=== PATIENT | female | born 1950 | race Caucasian/White ===

== ENCOUNTER 2017-05-25 22:26 | Emergency (ER) | payer MEDICARE ==
[2017-05-25 22:48] VITALS: BP 158/73; PULSE 76; RESP 20; TEMP 98.2
[2017-05-25] MEDS ORDERED: ORPHENADRINE 30 MG/ML 2 ML VIAL IM STA (22:57)
[2017-05-25] MEDS ORDERED: KETOROLAC 60 MG/2 ML VIAL IM STA (22:57)
--- NOTE | 2017-05-25 23:02 | ED ---
General Adult HPI - General Chief complaint: Back Pain/Injury Stated complaint: Back Pain Time Seen by Provider: 05/25/17 22:51 Source: patient, RN notes reviewed Mode of arrival: ambulatory Limitations: no limitations - History of Present Illness Initial comments: 67-year-old female presents to the emergency department with a chief complaint of back pain. Patient has had this back pain on and off for the summer. She's been on steroids she is currently on her second course but she just continues to have this back pain if she moves a certain way she'll just develop excruciating pain. Patient states if she sits one way she will have much pain at all. Patient states she's hoping she can get some x-rays. Patient's states that she is pretty active at home and move things but this seems to radiate it worse. Patient states she saw her doctor for persistent on x-ray so she thought that she should be seen. Patient denies any loss of bowel or bladder function or any saddle anesthesia. Patient denies any recent fever, chills, shortness of breath, chest pain, abdominal pain, nausea vomiting, numbness or tingling, dysuria or hematuria, constipation or diarrhea, headaches or visual changes, or any other current symptoms. - Related Data Home Medications Medication Instructions Recorded Confirmed ALPRAZolam [Xanax] 0.25 mg PO DAILY PRN 05/25/17 05/25/17 [place] Unknown Dose 1 tab PO DAILY 05/25/17 05/25/17 Cholecalciferol [Vitamin D3] 1,000 unit PO DAILY 05/25/17 05/25/17 FLUoxetine HCL [PROzac] 20 mg PO BID 05/25/17 05/25/17 Folic Acid 1 mg PO DAILY 05/25/17 05/25/17 Gabapentin [Neurontin] 600 mg PO TID 05/25/17 05/25/17 Lisinopril [Zestril] 10 mg PO BID 05/25/17 05/25/17 [place] Unknown Dose 1 tab PO Q6H PRN 05/25/17 05/25/17 Norvasc Unknown Dose 1 tab PO DAILY 05/25/17 05/25/17 hydrALAZINE HCL [Hydralazine HCl] 25 mg PO BID 05/25/17 05/25/17 predniSONE 40 mg PO DAILY 05/25/17 05/25/17 Previous Rx's Medication Instructions Recorded Lidocaine 5% Patch [Lidoderm 5% 1 patch TOPICAL DAILY #5 patch 05/26/17 Patch] Allergies Allergy/AdvReac Type Severity Reaction Status Date / Time Penicillins Allergy Unknown Verified 05/25/17 23:03 Childhood Review of Systems ROS Statement: Those systems with pertinent positive or pertinent negative responses have been documented in the HPI. ROS Other: All systems not noted in ROS Statement are negative. Past Medical History Past Medical History: Hypertension Additional Past Medical History / Comment(s): L5 compression fracture. chron's. History of Any Multi-Drug Resistant Organisms: None Reported Past Surgical History: No Surgical Hx Reported Past Psychological History: Anxiety, Depression Smoking Status: Current every day smoker Past Alcohol Use History: None Reported Past Drug Use History: Marijuana General Exam Limitations: no limitations General appearance: alert, in no apparent distress Neck exam: Present: normal inspection. Absent: tenderness, meningismus, lymphadenopathy Respiratory exam: Present: normal lung sounds bilaterally. Absent: respiratory distress, wheezes, rales, rhonchi, stridor Cardiovascular Exam: Present: regular rate, normal rhythm, normal heart sounds. Absent: systolic murmur, diastolic murmur, rubs, gallop, clicks Back exam: Present: normal inspection, full ROM. Absent: tenderness Neurological exam: Present: alert, oriented X3, CN II-XII intact Psychiatric exam: Present: normal affect, normal mood Course Vital Signs 05/25/17 22:43 Temperature 98.2 F Pulse Rate 76 Respiratory 20 Rate Blood Pressure 158/73 O2 Sat by Pulse 97 Oximetry Medical Decision Making - Medical Decision Making 67-year-old female presents emergency Department chief complaint of back pain on movement. At this time we discussed the patient's x-ray results. We did discuss follow-up with as well as a back specialist. Discussed return parameters all her questions. She stated she understood and she is a current plan. She will be discharged. - Radiology Data Radiology results: report reviewed, image reviewed Disposition Clinical Impression: Strain of lumbar region Disposition: HOME SELF-CARE Condition: Stable Instructions: Acute Low Back Pain (ED) Additional Instructions: Please use medication as discussed. Please follow up with family doctor if symptoms have not improved over the next two days. Please return to the emergency room if your symptoms increase or worsen or for any other concerns. Prescriptions: Lidocaine 5% Patch [Lidoderm 5% Patch] 1 patch TOPICAL DAILY #5 patch Referrals: Fela Morrow MD [STAFF PHYSICIAN] - 1-2 days Time of Disposition: 00:07
--- NOTE | 2017-05-26 | XR ---
EXAM: XR Lumbar Spine, 2 or 3 Views CLINICAL HISTORY: Reason: Pain TECHNIQUE: Frontal and lateral views of the lumbar spine. COMPARISON: No relevant prior studies available. FINDINGS: Vertebrae: Unremarkable. No acute fracture. Normal alignment. Disc spaces: There is mild loss of height of L1 and L2 vertebral bodies. There is mild rightward curvature of the lumbar spine due to degenerative disc height loss at L3-4. There is also disc height loss at L5-S1. Soft tissues: Unremarkable. IMPRESSION: 1. Mild vertebral body height loss of L1 and L2, likely chronic. Correlate with history. 2. Spondylotic changes at L3-4 and L5-S1. Mild rightward curvature of the lumbar spine.
== END 2017-05-26 00:39 | disposition home or self-care (01) ==
LOC: EC 22:26
DX: S39.012A Strain of muscle, fascia and tendon of lower back, initial encounter (principal); I10 Essential (primary) hypertension; F32.9 Major depressive disorder, single episode, unspecified; F17.200 Nicotine dependence, unspecified, uncomplicated; Z88.0 Allergy status to penicillin; Z79.899 Other long term (current) drug therapy; X50.9XXA Other and unspecified overexertion or strenuous movements or postures, initial encounter
CPT/HCPCS: 99283; 96372 ×2; 72100; J2360; J1885

== ENCOUNTER → 2017-06-21 | Outpatient (CLI) | payer MEDICARE ==
--- NOTE | 2017-06-21 09:35 | BD ---
EXAMINATION TYPE: MG DEXA axial skeleton. DATE OF EXAM: 06/21/2017 COMPARISON: NONE CLINICAL HISTORY: Z13.820 SCREENING OSTEOPOROSIS, postmenopausal female Height: 67 Weight: 130 FRAX RISK QUESTIONS: Alcohol (3 or more units per day): NO Family History (Parent hip fracture): NO Glucocorticoids (More than 3mos): NO, 2 MONTHS NOT 3 (Ex: prednisone, prednisolone, methylprednisolone, dexamethasone, and hydrocortisone). History of Fracture in Adulthood: NO Secondary Osteoporosis: NO 1. Type 1 Diabetes: NO 2. Hyperthyroidism: NO 3. Menopause before 45: NO 4. Malnutrition: NO 5. Chronic liver disease: NO Rheumatoid Arthritis: NO Current Tobacco Use: OCCASIONAL RISK FACTORS HISTORY OF: Family History of Osteoporosis: NO Active: IN WHEELCHAIR, UNABLE Diet low in dairy products/other sources of calcium: LACTOSE INTOLERANT...YES Postmenopausal woman: LATE 40'S Lost more than 2 inches in height since high school: YES Hyperparathyroidism: NO Adrenal Insufficiency: NO MEDICATIONS: Prednisone or other steroids: PREDNISONE How Long: LAST FEW MONTHS Additional Medications: VIT D, BP MEDS, PROZAC,NEUROTIN, Additional History: CRONES DISEASE, HYPERTENSION, NERVE ROOT COMPRESSION L5 SI EXAM MEASUREMENTS: Bone mineral densitometry was performed using the [employer] System. Bone mineral density as measured about the Lumbar spine is: ----- L1-L4(G/cm2): 0.562 T Score Values are as follows: ----- L1: -5.7 ----- L2: -5.9 ----- L3: -4.8 ----- L4: -4.7 ----- L1-L4: -5.1 Bone mineral density THIS IS HER FIRST BONE DENSITY TEST.....BASELINE STUDY Bone mineral density about the R hip (g/cm2): 0.541 Bone mineral density about the L hip (g/cm2): 0.555 T Score values are as follows: -----R Neck: -3.5 -----L Neck: -3.4 -----R Total: -3.7 -----L Total: -3.6 Bone mineral density BASELINE STUDY FRAX%'S: THERE IS A 24.8% CHANCE OF MAJOR OSTEOPOROTIC FX AND A 14.4% FOR HIP FX.....PROBABILITY I N 10 YRS TIME IMPRESSION: Osteoporosis (T Score less than -2.5) as noted by T Score values at the There is increased fracture risk and therapy is usually indicated based on age. Re-Screen 1-2 years FOR BOTH OF HER HIPS AND HER LUMBAR SPINE. NOTE: T-SCORE=SD OF THE YOUNG ADULT MEAN.
== END | disposition home or self-care (01) ==
LOC: RADBDWWP 07:28
PROVIDERS: ATTEND Family Medicine
DX: Z13.820 Encounter for screening for osteoporosis (principal); M81.0 Age-related osteoporosis without current pathological fracture
CPT/HCPCS: 77080

== ENCOUNTER → 2017-06-26 | Outpatient (CLI) | payer MEDICARE ==
--- NOTE | 2017-06-26 10:25 | CT ---
EXAMINATION TYPE: CT lumbar spine wo con DATE OF EXAM: 06/26/2017 COMPARISON: NONE HISTORY: lower rt side back pain CT DLP: 424.30 mGycm CONTRAST: No contrast TECHNIQUE: CT of the lumbar spine is performed on a spiral scan at 3 mm thick sections. Reconstructed images are performed in the coronal and sagittal planes. FINDINGS: T11-T12: Vertebral bodies containing hemangiomas. Disc spaces preserved. No spinal canal stenosis or neural foraminal stenosis is present. T12-L1: No focal disc herniation or significant disc bulge is evident. No spinal canal stenosis or neural foraminal stenosis is present. L1-L2: Very minimal disc bulge is present with anterior thecal sac contact. No spinal canal stenosis is evident. Neural foramen are patent. L2-L3: Minimal disc bulge is present with anterior thecal sac flattening. There is a superior endplat e compression deformity with approximately 20% loss of superior mid vertebral body height. No spinal canal stenosis evident. Neural foramen are patent. L3-L4: Minimal disc bulge is present with anterior thecal sac flattening. Mild facet hypertrophy and ligamentum flavum laxity is present. No spinal canal stenosis is present. There is mild left foramina l narrowing due to disc bulge. L4-L5: Mild disc bulge has mild anterior thecal sac flattening. No AP spinal canal stenosis present. Mild ligamentum flavum laxity is present. Facet hypertrophy is present. L5-S1: No focal disc herniation or significant disc bulge is evident. No spinal canal stenosis or n eural foraminal stenosis is present Vertebral alignment appears normal. IMPRESSION: 1. Superior endplate compression deformity of L3 of indeterminate but suspected old. 2. Vertebral body hemangiomas T11-T12. 3. Diffuse mild disc bulging with mild anterior thecal sac compression throughout the lumbar spine. T his may be greatest at the L4-5 level.
== END | disposition home or self-care (01) ==
LOC: RADCTMAIN 07:25
PROVIDERS: ATTEND Family Medicine
DX: M51.26 Other intervertebral disc displacement, lumbar region (principal); M43.8X6 Other specified deforming dorsopathies, lumbar region; D18.09 Hemangioma of other sites
CPT/HCPCS: 72131

== ENCOUNTER 2017-07-04 16:26 | Emergency (ER) | payer MEDICARE ==
[2017-07-04 16:37] VITALS: RESP 18
[2017-07-04] MEDS ORDERED: SODIUM CHLORIDE 0.9% 1,000 ML IV STA (17:24)
[2017-07-04] MEDS ORDERED: SODIUM CHLORIDE 0.9% 500 ML IV STA (17:24)
[2017-07-04] MEDS ORDERED: HYDROmorphone 1 MG/ML 1 ML SYRINGE IVP STA (17:25)
[2017-07-04] MEDS ORDERED: RX INFO: IV CONTRAST WAS GIVEN 1 EACH MISC MISCELLANE PRN (17:25)
[2017-07-04 17:53] LABS: Basophils # (A) 0.1 k/uL (0-0.2); Basophils % (A) 1 %; CH 28.6; CHCM 32.9; Eosinophils # (A) 0.2 k/uL (0-0.7); Eosinophils % (A) 2 %; HCT 45.3 % (34.0-46.0); HGB 14.6 gm/dL (11.4-16.0); Luc # (Auto) 0.09; Luc % (Auto) 1; Lymphocytes # (A) 1.2 k/uL (1.0-4.8); Lymphocytes % (A) 12 %; MCH 28.2 pg (25.0-35.0); MCHC 32.3 g/dL (31.0-37.0); MCV 87.4 fL (80.0-100.0); Mean Platelet Volume 7.9; Monocytes # (A) 0.7 k/uL (0-1.0); Monocytes % (A) 7 %; Neutrophils # (A) 7.1 k/uL (1.3-7.7); Neutrophils % (A) 76 %; RBC 5.18 m/uL (3.80-5.40); RDW 14.3 % (11.5-15.5); WBC 9.4 k/uL (3.8-10.6)
[2017-07-04 17:59] LABS: Partial Thromboplastin Time 28.3 sec (22.0-30.0); Prothrombin Time 9.8 sec (9.0-12.0)
[2017-07-04 18:01] LABS: ALT 28 U/L (9-52); AST 26 U/L (14-36); Alkaline Phosphatase 88 U/L (38-126); Amylase <30 U/L (30-110); Anion Gap 10 mmol/L; Blood Urea Nitrogen 13 mg/dL (7-17); Calcium 9.5 mg/dL (8.4-10.2); Carbon Dioxide 26 mmol/L (22-30); Chloride 104 mmol/L (98-107); Glucose 99 mg/dL (74-99); Magnesium 1.7 mg/dL (1.6-2.3); Non-African American GFR(MDRD) >60 (>60 ml/min/1.73 sqM); Potassium 4.3 mmol/L (3.5-5.1); Sodium 140 mmol/L (137-145); Total Bilirubin 0.3 mg/dL (0.2-1.3); Total Protein 6.8 g/dL (6.3-8.2)
[2017-07-04 18:30] LABS: Creatine Kinase MB 1.1 ng/mL (0.0-2.4)
--- NOTE | 2017-07-04 19:04 | CT ---
EXAMINATION TYPE: CT ChestAbdPelvis w con DATE OF EXAM: 07/04/2017 COMPARISON: NONE HISTORY: Fall 06/29/17. Left chest and abdomen pain. CT DLP: 508.90 mGycm Automated exposure control for dose reduction was used. CONTRAST: CT scan of the chest, abdomen and pelvis is performed without Oral Contrast and with IV Contrast, pat ient injected with 100 mL of Omnipaque 300. FINDINGS: There is mild pulmonary emphysema. There is no evidence of a pulmonary mass. There is mild interstiti al density at the posterior lung bases consistent with scarring and subsegmental atelectasis. There i s no pericardial effusion. There is no pleural effusion. There is no mediastinal adenopathy. There are calcified right bronchial lymph nodes. Liver and spleen appear normal. Bile ducts are not dilated. Gallbladder appears normal. There is no p ancreatic mass. There is no adrenal mass. Kidneys show satisfactory contrast opacification. There is no hydronephrosi s. There is a 1.5 cm cortical cyst on the anterior lower pole left kidney. There is no retroperitonea l adenopathy. There is mild wall thickening involving the distal ileum. There is a loop of small bowel proximal to the terminal ileum that is slightly dilated and measures 3.7 cm. There is fluid level. Appendix is no t seen. There is no sign of appendicitis. There is tended 20% depression of the superior endplates of L3 and L2 with osteotenia. I see no focal bone destruction. Bladder distends smoothly. I see no pelvic mass. IMPRESSION: Emphysema. Fibrotic changes at the lung bases. Wall thickening involving the terminal ileum could relate to Crohn's disease. There is distal small b owel mildly dilated loop consistent with ileus. A partial mechanical small bowel obstruction cannot b e entirely excluded. Osteoporotic mild compression fractures of L2 and L3.
--- NOTE | 2017-07-04 19:22 | ED ---
Fall HPI - General Chief Complaint: Fall Stated Complaint: Fall Time Seen by Provider: 07/04/17 17:00 Source: patient Mode of arrival: ambulatory - History of Present Illness Initial Comments: This is a 59-year-old female who states about 5 days ago she also balance and fell into a dresser. She had the left side of her ribs and complains of pain to that area ever since. She has no cough fevers chills sweats phlegm production no dysuria no overt abdominal pain. No loss of function to her lower extremities. This persistent pain she is afraid that she may have broken a rib. MD Complaint: fall - Related Data Home Medications Medication Instructions Recorded Confirmed ALPRAZolam [Xanax] 0.5 mg PO DAILY PRN 05/25/17 07/04/17 FLUoxetine HCL [PROzac] 20 mg PO BID 05/25/17 07/04/17 Gabapentin [Neurontin] 600 mg PO Q8H 05/25/17 07/04/17 Lisinopril [Zestril] 10 mg PO BID 05/25/17 07/04/17 HYDROcodone/APAP 7.5-325MG [[place] 1 tab PO Q8H PRN 07/04/17 07/04/17 7.5-325] amLODIPine [Norvasc] 5 mg PO BID 07/04/17 07/04/17 cloNIDine HCL [Catapres] 0.1 mg PO BID 07/04/17 07/04/17 hydrALAZINE HCL [Apresoline] 100 mg PO TID 07/04/17 07/04/17 Previous Rx's Medication Instructions Recorded Ibuprofen 800 mg PO Q6HR PRN #20 tablet 07/04/17 Allergies Allergy/AdvReac Type Severity Reaction Status Date / Time Penicillins Allergy Unknown Verified 07/04/17 17:41 Childhood Review of Systems ROS Statement: Those systems with pertinent positive or pertinent negative responses have been documented in the HPI. ROS Other: All systems not noted in ROS Statement are negative. Past Medical History Past Medical History: Hypertension Additional Past Medical History / Comment(s): L5 compression fracture. crohns. History of Any Multi-Drug Resistant Organisms: None Reported Past Surgical History: No Surgical Hx Reported Past Psychological History: Anxiety, Depression Smoking Status: Current every day smoker Past Alcohol Use History: None Reported Past Drug Use History: Marijuana General Exam - General Exam Comments Initial Comments: This is a well-developed well-nourished awake alert oriented 3 female she does demonstrate a Manda Coma Scale of 15 Limitations: no limitations General appearance: alert, in no apparent distress Head exam: Present: atraumatic, normocephalic, normal inspection Eye exam: Present: normal appearance, PERRL, EOMI. Absent: scleral icterus, conjunctival injection, periorbital swelling ENT exam: Present: normal exam, mucous membranes moist Neck exam: Present: normal inspection. Absent: tenderness, meningismus, lymphadenopathy Respiratory exam: Present: chest wall tenderness, other (Tennis palpation of the left lateral lower chest wall no step-off or crepitation no rashes seen no bruising seen. No step-off or crepitation as stated). Absent: respiratory distress, wheezes, rales, rhonchi, stridor Cardiovascular Exam: Present: regular rate, normal rhythm, normal heart sounds. Absent: systolic murmur, diastolic murmur, rubs, gallop, clicks GI/Abdominal exam: Present: soft, tenderness (Mild left flank and left upper quadrant tenderness palpation no guarding rebound masses or bruits), normal bowel sounds. Absent: distended, guarding, rebound, rigid Extremities exam: Present: normal inspection, full ROM, normal capillary refill. Absent: tenderness, pedal edema, joint swelling, calf tenderness Back exam: Present: normal inspection Neurological exam: Present: alert, oriented X3, CN II-XII intact Psychiatric exam: Present: normal affect, normal mood Skin exam: Present: warm, dry, intact, normal color. Absent: rash Course Vital Signs 07/04/17 16:31 Temperature 98.5 F Pulse Rate 94 Respiratory 18 Rate Blood Pressure 180/88 O2 Sat by Pulse 95 Oximetry Medical Decision Making - Medical Decision Making I did discuss findings with the patient she will be discharged the presentation is consistent with contusion of the ribs. Chart he has narcotic pain medication at home she will be also given a prescription for Motrin. She is follow-up with her doctor and return when necessary - Lab Data Result diagrams: 07/04/17 17:38 07/04/17 17:38 Lab Results 07/04/17 07/04/17 07/04/17 Range/Units 17:38 17:38 17:38 WBC (3.8-10.6) k/uL RBC (3.80-5.40) m/uL Hgb (11.4-16.0) gm/dL Hct (34.0-46.0) % MCV (80.0-100.0) fL MCH (25.0-35.0) pg MCHC (31.0-37.0) g/dL RDW (11.5-15.5) % Plt Count (150-450) k/uL Neutrophils % % Lymphocytes % % Monocytes % % Eosinophils % % Basophils % % Neutrophils # (1.3-7.7) k/uL Lymphocytes # (1.0-4.8) k/uL Monocytes # (0-1.0) k/uL Eosinophils # (0-0.7) k/uL Basophils # (0-0.2) k/uL PT 9.8 (9.0-12.0) sec INR 1.0 (<1.2) APTT 28.3 (22.0-30.0) sec Sodium 140 (137-145) mmol/L Potassium 4.3 (3.5-5.1) mmol/L Chloride 104 (98-107) mmol/L Carbon Dioxide 26 (22-30) mmol/L Anion Gap 10 mmol/L BUN 13 (7-17) mg/dL Creatinine 0.92 (0.52-1.04) mg/dL Est GFR (MDRD) Af Amer >60 (>60 ml/min/1.73 sqM) Est GFR (MDRD) Non-Af >60 (>60 ml/min/1.73 sqM) Glucose 99 (74-99) mg/dL Calcium 9.5 (8.4-10.2) mg/dL Magnesium 1.7 (1.6-2.3) mg/dL Total Bilirubin 0.3 (0.2-1.3) mg/dL AST 26 (14-36) U/L ALT 28 (9-52) U/L Alkaline Phosphatase 88 (38-126) U/L Total Creatine Kinase 93 (30-135) U/L CK-MB (CK-2) 1.1 (0.0-2.4) ng/mL CK-MB (CK-2) Rel Index 1.2 Total Protein 6.8 (6.3-8.2) g/dL Albumin 3.9 (3.5-5.0) g/dL Amylase <30 L (30-110) U/L Lipase 127 (23-300) U/L 07/04/17 Range/Units 17:38 WBC 9.4 (3.8-10.6) k/uL RBC 5.18 (3.80-5.40) m/uL Hgb 14.6 (11.4-16.0) gm/dL Hct 45.3 (34.0-46.0) % MCV 87.4 (80.0-100.0) fL MCH 28.2 (25.0-35.0) pg MCHC 32.3 (31.0-37.0) g/dL RDW 14.3 (11.5-15.5) % Plt Count 297 (150-450) k/uL Neutrophils % 76 % Lymphocytes % 12 % Monocytes % 7 % Eosinophils % 2 % Basophils % 1 % Neutrophils # 7.1 (1.3-7.7) k/uL Lymphocytes # 1.2 (1.0-4.8) k/uL Monocytes # 0.7 (0-1.0) k/uL Eosinophils # 0.2 (0-0.7) k/uL Basophils # 0.1 (0-0.2) k/uL PT (9.0-12.0) sec INR (<1.2) APTT (22.0-30.0) sec Sodium (137-145) mmol/L Potassium (3.5-5.1) mmol/L Chloride (98-107) mmol/L Carbon Dioxide (22-30) mmol/L Anion Gap mmol/L BUN (7-17) mg/dL Creatinine (0.52-1.04) mg/dL Est GFR (MDRD) Af Amer (>60 ml/min/1.73 sqM) Est GFR (MDRD) Non-Af (>60 ml/min/1.73 sqM) Glucose (74-99) mg/dL Calcium (8.4-10.2) mg/dL Magnesium (1.6-2.3) mg/dL Total Bilirubin (0.2-1.3) mg/dL AST (14-36) U/L ALT (9-52) U/L Alkaline Phosphatase (38-126) U/L Total Creatine Kinase (30-135) U/L CK-MB (CK-2) (0.0-2.4) ng/mL CK-MB (CK-2) Rel Index Total Protein (6.3-8.2) g/dL Albumin (3.5-5.0) g/dL Amylase (30-110) U/L Lipase (23-300) U/L - Radiology Data Radiology results: report reviewed (I did review the imaging and reports no evidence of acute findings.), image reviewed Disposition Clinical Impression: Contusion of rib on left side, Fall Disposition: HOME SELF-CARE Condition: Good Instructions: Fall Prevention for Older Adults (ED), Rib Contusion (ED) Prescriptions: Ibuprofen 800 mg PO Q6HR PRN #20 tablet PRN Reason: Pain Referrals: Vanna Davalos MD [Primary Care Provider] - 1-2 days
[2017-07-04 19:35] VITALS: BP 202/95; PULSE 76; TEMP 98.2
== END 2017-07-04 19:49 | disposition home or self-care (01) ==
LOC: EC 16:26
DX: S20.212A Contusion of left front wall of thorax, initial encounter (principal); I10 Essential (primary) hypertension; F41.9 Anxiety disorder, unspecified; F32.9 Major depressive disorder, single episode, unspecified; F17.200 Nicotine dependence, unspecified, uncomplicated; R40.2412 Glasgow coma scale score 13-15, at arrival to emergency department; Z79.899 Other long term (current) drug therapy; Z88.0 Allergy status to penicillin; W19.XXXA Unspecified fall, initial encounter
CPT/HCPCS: 36415; 80053; 82150; 82550; 82553; 83690; 83735; 85025; 85610; 85730; 71260; 74177; 99284; 96374; 96361; J1170; Q9967

== ENCOUNTER → 2017-11-23 | Outpatient (CLI) | payer MEDICARE ==
[2017-11-23 18:15] LABS: T4, Free (Free Thyroxine) 1.26 ng/dL (0.78-2.19)
[2017-11-24 00:52] LABS: Thyroid Peroxidase Antibodies 31.7 U/mL (0.0-60.0)
== END | disposition home or self-care (01) ==
LOC: LABWHC1 17:17
PROVIDERS: ATTEND Family Medicine
DX: E03.9 Hypothyroidism, unspecified (principal); K85.90 Acute pancreatitis without necrosis or infection, unspecified; I25.10 Atherosclerotic heart disease of native coronary artery without angina pectoris
CPT/HCPCS: 36415; 82150; 83690; 84439; 84443; 84480; 86376; 86800

== ENCOUNTER → 2017-12-14 | Outpatient (CLI) | payer MEDICARE ==
--- NOTE | 2017-12-15 09:04 | US ---
EXAMINATION TYPE: US carotid duplex BILAT DATE OF EXAM: 12/14/2017 COMPARISON: NONE CLINICAL HISTORY: I65.29 Carotid occlusive disease. EXAM MEASUREMENTS: RIGHT: Peak Systolic Velocity (PSV) cm/sec ----- Right CCA: 68.0 ----- Right ICA: 81.2 ----- Right ECA: 71.4 ICA/CCA ratio: 1.2 RIGHT: End Diastole cm/sec ----- Right CCA: 13.1 ----- Right ICA: 10.9 ----- Right ECA: 6.0 LEFT: Peak Systolic Velocity (PSV) cm/sec ----- Left CCA: 70.2 ----- Left ICA: 68.0 ----- Left ECA: 83.4 ICA/CCA ratio: 1.0 LEFT: End Diastole cm/sec ----- Left CCA: 14.2 ----- Left ICA: 20.9 ----- Left ECA: 7.6 VERTEBRALS (direction of flow): Right Vertebral: Antegrade Left Vertebral: Antegrade Rhythm: Normal Grayscale images show mild eccentric hyperechoic plaque right carotid bulb extending into proximal in ternal carotid artery. There is minimal plaque at left carotid bulb. Velocity measurements remain wit hin normal limits bilaterally. IMPRESSION: No hemodynamically significant stenosis is seen in either internal carotid artery.
--- NOTE | 2017-12-17 13:13 | ECHOF ---
Referral Reason:I65.29 Carotid occlusive disease MEASUREMENTS -------- HEIGHT: 175.3 cm WEIGHT: 59.9 kg BP: IVSd: 1.2 cm (0.6 - 1.1) LVIDd: 3.9 cm (3.9 - 5.3) LVPWd: 1.2 cm (0.6 - 1.1) IVSs: 1.8 cm LVIDs: 2.4 cm LVPWs: 1.4 cm LAESV Index (A-L): 26.36 ml/m Ao Diam: 2.6 cm (2.0 - 3.7) AV Cusp: 1.5 cm (1.5 - 2.6) LA Diam: 2.4 cm (2.7 - 3.8) MV EXCURSION: 16.594 mm (> 18.000) MV EF SLOPE: 141 mm/s (70 - 150) EPSS: 0.5 cm MV E Elpidio: 0.82 m/s MV DecT: 210 ms MV A Elpidio: 0.95 m/s MV E/A Ratio: 0.86 AR PHT: 411 ms RAP: 5.00 mmHg RVSP: 33.10 mmHg FINDINGS -------- Sinus rhythm. This was a technically good study. The left ventricular size is normal. Left ventricular wall thickness is normal. Overall left vent ricular systolic function is normal with, an EF between 55 - 60 %. The right ventricle is normal in size and function. The left atrium is normal in size. The right atrium is normal in size. The aortic valve is trileaflet and appears structurally normal. There is mild aortic regurgitation. The mitral valve leaflets are mildly thickened. Moderate mitral regurgitation is present. Mild tricuspid regurgitation present. There is no evidence of pulmonary hypertension. The right v entricular systolic pressure, as measured by Doppler, is 33.10mmHg. There is no pulmonic regurgitation present. The aortic root size is normal. Normal inferior vena cava with normal inspiratory collapse consistent with estimated right atrial pre ssure of 5 mmHg. There is no pericardial effusion. CONCLUSIONS -------- 1. Sinus rhythm. 2. This was a technically good study. 3. The left ventricular size is normal. 4. Left ventricular wall thickness is normal. 5. Overall left ventricular systolic function is normal with, an EF between 55 - 60 %. 6. The left atrium is normal in size. 7. The aortic valve is trileaflet and appears structurally normal. 8. There is mild aortic regurgitation. 9. The mitral valve leaflets are mildly thickened. 10. Moderate mitral regurgitation is present. 11. Mild tricuspid regurgitation present. 12. There is no evidence of pulmonary hypertension. 13. There is no pulmonic regurgitation present. 14. The aortic root size is normal. 15. Normal inferior vena cava with normal inspiratory collapse consistent with estimated right atrial pressure of 5 mmHg. 16. There is no pericardial effusion. PICK UP TRUCK DRIVER: Zora [place] RDCS
== END | disposition home or self-care (01) ==
LOC: RADECHMAIN 15:11
PROVIDERS: ATTEND Family Medicine
DX: I65.29 Occlusion and stenosis of unspecified carotid artery (principal); I08.8 Other rheumatic multiple valve diseases
CPT/HCPCS: 93306; 93880

== ENCOUNTER → 2018-02-21 | Outpatient (CLI) | payer MEDICARE ==
--- NOTE | 2018-02-22 09:27 | XR ---
EXAMINATION TYPE: XR chest 2V DATE OF EXAM: 02/21/2018 COMPARISON: Chest CT 07/04/2017 HISTORY: F 17.210, nicotine dependence TECHNIQUE: Frontal and lateral views of the chest are obtained. FINDINGS: There is no focal air space opacity, pleural effusion, or pneumothorax seen. The cardiac silhouette size is within normal limits. Prominent lung volumes are compatible with underlying COPD. There is a spinal curvature. Suspect interval development of lower thoracic or upper lumbar osteoporo tic compression fractures. IMPRESSION: Emphysema. Interval osteoporotic compression fractures in the lower spine.
== END | disposition home or self-care (01) ==
LOC: RADXRMAIN 16:55
PROVIDERS: ATTEND Family Medicine
DX: F17.210 Nicotine dependence, cigarettes, uncomplicated (principal); J43.9 Emphysema, unspecified
CPT/HCPCS: 71046

== ENCOUNTER 2018-05-09 19:19 | Emergency (ER) | payer MEDICARE ==
[2018-05-09 19:54] VITALS: BP 145/66; PULSE 82; RESP 18; TEMP 98.9
--- NOTE | 2018-05-09 20:32 | ED ---
General Adult HPI - General Chief complaint: Recheck/Abnormal Lab/Rx Stated complaint: Arm Fx/Numbness Time Seen by Provider: 05/09/18 19:55 Source: patient, RN notes reviewed Mode of arrival: ambulatory Limitations: physical limitation - History of Present Illness Initial comments: This is a 68-year-old female comes in stating she had fractured her left wrist on Sunday and went to another hospital and she was splinted and sent the Dr. Jaimes. Patient with Dr. Jaimes she refused to cast and he put her in a splint and sent her on her way. Patient states since then the hands become more swollen so she is concerned about the increased swelling and a little bit increased pain. Prior to arrival she took 2 Leslie was. Patient denies any other medications patient denies any other injury at this time. Patient denies any numbness or weakness though she states it feels a little different but she guesses that she just from the swelling. There is no new area of pain is been no injury - Related Data Home Medications Medication Instructions Recorded Confirmed ALPRAZolam [Xanax] 0.5 mg PO DAILY PRN 05/25/17 05/09/18 FLUoxetine HCL [PROzac] 20 mg PO BID 05/25/17 05/09/18 Gabapentin [Neurontin] 600 mg PO Q8H 05/25/17 05/09/18 Lisinopril [Zestril] 10 mg PO BID 05/25/17 05/09/18 HYDROcodone/APAP 7.5-325MG [Leslie 1 tab PO Q8H PRN 07/04/17 05/09/18 7.5-325] amLODIPine [Norvasc] 5 mg PO BID 07/04/17 05/09/18 cloNIDine HCL [Catapres] 0.1 mg PO BID 07/04/17 05/09/18 hydrALAZINE HCL [Apresoline] 100 mg PO TID 07/04/17 05/09/18 Previous Rx's Medication Instructions Recorded Ibuprofen 800 mg PO Q6HR PRN #20 tablet 07/04/17 Allergies Allergy/AdvReac Type Severity Reaction Status Date / Time Penicillins Allergy Unknown Verified 05/09/18 19:53 Childhood Review of Systems ROS Statement: Those systems with pertinent positive or pertinent negative responses have been documented in the HPI. ROS Other: All systems not noted in ROS Statement are negative. Past Medical History Past Medical History: Hypertension Additional Past Medical History / Comment(s): L5 compression fracture. crohns. History of Any Multi-Drug Resistant Organisms: None Reported Past Surgical History: Tubal Ligation Past Psychological History: Anxiety, Depression Smoking Status: Current every day smoker Past Alcohol Use History: None Reported Past Drug Use History: Marijuana General Exam - General Exam Comments Initial Comments: GENERAL Patient is well-developed and well-nourished. Patient is in mild distress. EYES Patient's pupils are equal and round. Extraocular motion is intact SKIN Unremarkable NEURO The patient is alert and oriented 3 PYSCH Patient has normal interpersonal interactions. MUSCULOSKELETAL Left hand is swollen somewhat ecchymotic and tender to palpation around the wrist. Limitations: physical limitation Course Vital Signs 05/09/18 19:51 Temperature 98.9 F Pulse Rate 82 Respiratory 18 Rate Blood Pressure 145/66 O2 Sat by Pulse 94 L Oximetry Medical Decision Making - Medical Decision Making I re-x-rayed the wrist that showed no changes from the previous x-ray so since Dr. Jaimes the scene the patient I let her follow up with Dr. Jaimes. I told the patient to keep the hand elevated and don't put the File[place] wrap onto tightly. Splint was reapplied Disposition Clinical Impression: Wrist fracture, left Disposition: HOME SELF-CARE Condition: Good Instructions: Wrist Fracture in Adults (ED) Is patient prescribed a controlled substance at d/c from ED?: No Referrals: Jas Jaimes DO [Doctor of Osteopathic Medicine] - 1-2 days Time of Disposition: 20:59
[2018-05-09] MEDS ORDERED: KETOROLAC 60 MG/2 ML VIAL IM STA (21:08)
--- NOTE | 2018-05-09 21:10 | XR ---
EXAMINATION TYPE: XR forearm RT DATE OF EXAM: 05/09/2018 COMPARISON: NONE HISTORY: Pain TECHNIQUE: 2 views FINDINGS: There is impacted transverse fracture of the distal radius. There is no dislocation. Elbow joint appears intact. IMPRESSION: Distal radius fracture. Possible ulnar styloid process tip fracture.
== END 2018-05-09 21:29 | disposition home or self-care (01) ==
LOC: EC 19:19
DX: S52.502D Unspecified fracture of the lower end of left radius, subsequent encounter for closed fracture with routine healing (principal); I10 Essential (primary) hypertension; F32.9 Major depressive disorder, single episode, unspecified; F41.9 Anxiety disorder, unspecified; F17.200 Nicotine dependence, unspecified, uncomplicated; Z79.899 Other long term (current) drug therapy; Z88.0 Allergy status to penicillin; W19.XXXD Unspecified fall, subsequent encounter
CPT/HCPCS: 99284; 96372; 73090; J1885

== ENCOUNTER → 2019-01-28 | Outpatient (CLI) | payer MEDICARE ==
[2019-01-28 20:20] LABS: Vitamin D 25 Hydroxy 46.5 ng/mL (30.0-100.0)
[2019-01-28 20:46] LABS: Parathyroid Hormone Intact 60.6 pg/mL (14.0-72.0)
[2019-01-28 20:58] LABS: Albumin 4.3 g/dL (3.80-4.90); Albumin/Globulin Ratio 2.05 (1.60-3.17); Anion Gap 8.5 mmol/L (4.00-12.00); Calcium 9.3 mg/dL (8.7-10.3); Carbon Dioxide 26.5 mmol/L (21.6-31.8); Globulin 2.1 g/dL (1.6-3.3); LDL Cholesterol,Calculated 103.4 mg/dL (0.0-131.0); Magnesium 1.8 mg/dL (1.5-2.4); Potassium 4.1 mmol/L (3.5-5.5); Total Bilirubin 0.7 mg/dL (0.3-1.2); Total Protein 6.4 g/dL (6.2-8.2); VLDL Calculation 22.6 mg/dL (5.00-40.00)
[2019-01-28 21:09] LABS: T4, Free (Free Thyroxine) 1.2 ng/dL (0.80-1.80)
== END | disposition home or self-care (01) ==
LOC: LABWHC1 12:31
PROVIDERS: ATTEND Internal Medicine Endocrinology, Diabetes & Metabolism
DX: F32.9 Major depressive disorder, single episode, unspecified (principal); M19.90 Unspecified osteoarthritis, unspecified site
CPT/HCPCS: 36415; 80053; 80061; 82306; 83735; 83970; 84439; 84443; 85652

== ENCOUNTER 2019-01-30 16:14 | Emergency (ER) | payer MEDICARE ==
[2019-01-30] MEDS ORDERED: SODIUM CHLORIDE 0.9% 1,000 ML IV STA (16:44)
[2019-01-30] MEDS ORDERED: DIAZEPAM 5 MG/ML 2 ML INJ IVP STA (16:44)
[2019-01-30] MEDS ORDERED: GLUCAGON 1 MG/ML VIAL IVP STA (16:44)
--- NOTE | 2019-01-30 16:44 | ED ---
ENT HPI - General Chief complaint: ENT Stated complaint: Trouble Swallowing Time Seen by Provider: 01/30/19 16:35 Source: patient, RN notes reviewed, old records reviewed Mode of arrival: ambulatory Limitations: no limitations - History of Present Illness Initial comments: This is a 69-year-old female the ER for evaluation. Patient resents today for evaluation of esophageal foreign body. Patient is eating shrimp earlier in the day and felt he got stuck unable to tolerate secretions that he would drink. Patient had similar episode years ago but did resolve with medication. No prior history of upper GI no prior evaluation. Patient denies any other complaints no chest pain she is anxious with the foreign body being stuck. MD complaint: difficulty swallowing, foreign body -: hour(s) Location: throat Severity: severe Severity scale (1-10): 10 Quality: aching Consistency: constant Improves with: none Worsens with: swallowing - Related Data Home Medications Medication Instructions Recorded Confirmed ALPRAZolam [Xanax] 0.5 mg PO DAILY PRN 05/25/17 01/30/19 FLUoxetine HCL [PROzac] 20 mg PO BID 05/25/17 01/30/19 Gabapentin [Neurontin] 600 mg PO Q8H 05/25/17 01/30/19 amLODIPine [Norvasc] 5 mg PO BID 07/04/17 01/30/19 cloNIDine HCL [Catapres] 0.1 mg PO BID 07/04/17 01/30/19 hydrALAZINE HCL [Apresoline] 100 mg PO TID 07/04/17 01/30/19 Ergocalciferol [Vitamin D2] 50,000 unit PO MO 01/30/19 01/30/19 Previous Rx's Medication Instructions Recorded Ibuprofen 800 mg PO Q6HR PRN #20 tablet 07/04/17 Allergies Allergy/AdvReac Type Severity Reaction Status Date / Time Penicillins Allergy Unknown Verified 01/30/19 17:03 Childhood Review of Systems ROS Statement: Those systems with pertinent positive or pertinent negative responses have been documented in the HPI. ROS Other: All systems not noted in ROS Statement are negative. Past Medical History Past Medical History: Hypertension Additional Past Medical History / Comment(s): L5 compression fracture. crohns. History of Any Multi-Drug Resistant Organisms: None Reported Past Surgical History: Tubal Ligation Past Psychological History: Anxiety, Depression Smoking Status: Current every day smoker Past Alcohol Use History: None Reported Past Drug Use History: Marijuana General Exam Limitations: no limitations General appearance: alert, in no apparent distress Head exam: Present: atraumatic, normocephalic, normal inspection Eye exam: Present: normal appearance, PERRL, EOMI. Absent: scleral icterus, conjunctival injection, periorbital swelling ENT exam: Present: normal exam, mucous membranes moist Neck exam: Present: normal inspection. Absent: tenderness, meningismus, lymphadenopathy Respiratory exam: Present: normal lung sounds bilaterally. Absent: respiratory distress, wheezes, rales, rhonchi, stridor Cardiovascular Exam: Present: regular rate, normal rhythm, normal heart sounds. Absent: systolic murmur, diastolic murmur, rubs, gallop, clicks GI/Abdominal exam: Present: soft, normal bowel sounds. Absent: distended, tenderness, guarding, rebound, rigid Extremities exam: Present: normal inspection, full ROM, normal capillary refill. Absent: tenderness, pedal edema, joint swelling, calf tenderness Back exam: Present: normal inspection Neurological exam: Present: alert, oriented X3, CN II-XII intact Psychiatric exam: Present: normal affect, normal mood Skin exam: Present: warm, dry, intact, normal color. Absent: rash Course Vital Signs 01/30/19 16:22 Temperature 98.1 F Pulse Rate 87 Respiratory 18 Rate Blood Pressure 156/83 O2 Sat by Pulse 95 Oximetry - Reevaluation(s) Reevaluation #1: 01/30/19 18:50 Medical record reviewed Reevaluation #2: 01/30/19 18:50 Improvement with medication Reevaluation #3: 01/30/19 18:50 Dr. Reynolds for GI and endoscopy evaluating patient here in the ER Medical Decision Making - Medical Decision Making 79 female the ER positive esophageal foreign body. Patient has upper endoscopy with improvement of the foreign body. Patient can be discharged home - Radiology Data Radiology results: report reviewed (Chest x-rays negative for acute disease), image reviewed Disposition Clinical Impression: Esophageal foreign body Disposition: HOME SELF-CARE Condition: Good Instructions (If sedation given, give patient instructions): Esophageal Foreign Body (ED) Is patient prescribed a controlled substance at d/c from ED?: No Referrals: Aracelis Reynolds MD [STAFF PHYSICIAN] - 1-2 days
--- NOTE | 2019-01-30 17:11 | XR ---
EXAMINATION TYPE: XR chest 1V portable DATE OF EXAM: 01/30/2019 COMPARISON: 02/21/2018 HISTORY: Difficulty swallowing. Chest pain TECHNIQUE: Single frontal view of the chest is obtained. FINDINGS: There is no heart failure. Heart size is normal. Costophrenic angles are clear. Thoracic a philly is atheromatous. There are no hilar masses. There is a small linear density in the right upper l obe laterally. There is some pleural thickening at the right lung apex. IMPRESSION: Focal atelectasis right upper lobe is a change compared to old exam. Normal heart. There is increased pleural thickening right upper lobe compared to old exam also.
[2019-01-30] MEDS ORDERED: LIDOCAINE 1% INJ 10MG/ML (20 ML MDV) ONE (19:18)
[2019-01-30] MEDS ORDERED: PROPOFOL 10 MG/ML 20 ML VIAL IV ONE (19:18)
[2019-01-30] MEDS ORDERED: SODIUM CHLORIDE 0.9% 1,000 ML IV ONE (19:29)
--- NOTE | 2019-01-30 19:34 | P.PCN ---
Date of Procedure: 01/30/19 Procedure(s) Performed: BRIEF HISTORY: Patient is a 69-year-old, pleasant, white male, came to emergency room with acute food impaction. She had a similar episode 3 years ago that spontaneously resolved. Never had an upper endoscopy in the past.. PROCEDURE PERFORMED: Esophagogastroduodenoscopy with foreign body removal. PREOPERATIVE DIAGNOSIS: Dysphagia/acute food impaction. IV sedation per anesthesia. PROCEDURE: After informed consent was obtained, the patient was brought into the endoscopy unit. IV sedation was administered by Anesthesia under continuous monitoring. Initially the Olympus GIF-140 video endoscope was inserted into the mouth. Esophagus intubated without any difficulty. It was gradually advanced into the distal esophagus. There was a large piece of meat that was impacted. Using a Milian net the piece of meat was withdrawn out of the mouth along with the scope. The esophagus was reintubated without any difficulty and was gradually advanced into the stomach and duodenum and carefully examined. The bulb and the second part of the duodenum appeared normal. The scope at this time was withdrawn to the stomach, adequately insufflated with air, and upon careful examination, mucosa of the antrum, body, cardia and the fundus appeared normal. The scope was then withdrawn into the esophagus. The GE junction was located at 39 cm from the incisors. There was a distal esophageal stricture identified with luminal diameter of approximately 10 mm. The rest of the food particles were gently pushed into the stomach. There was a small hiatal hernia noted. There was circumferential erythema as well as erosions of the distal esophagus consistent with LA grade B reflux esophagitis. The rest of the esophagus appeared normal and the patient tolerated the procedure well. IMPRESSION: 1. Food bolus impaction in the distal esophagus status post removal as described above. 2. Distal esophageal stricture. RECOMMENDATIONS: The findings of this examination were discussed with the patient as well as her family. She will remain on a soft diet. She'll start on Prilosec 20 mg daily and follow antireflux measures. She will follow up in office in 2 weeks and will discuss elective upper endoscopy with dilation.
[2019-01-30 20:00] VITALS: BP 148/88; PULSE 88; RESP 20; TEMP 98.3
--- NOTE | 2019-01-30 23:43 | CONS ---
CONSULTATION DATE OF SERVICE: 01/30/2019 REASON FOR CONSULTATION: Acute food impaction. HISTORY OF PRESENT ILLNESS: The patient is a 69 -year-old white female who came to the Emergency Room with acute food dysphagia. She was eating for lunch and could not swallow any further. Came to the emergency room and was tried Glucophage with no help. She has been having these episodes on and off for the last few months. She had a similar episode about two years ago and went to [facility], but after giving some medications, the episodes resolved. She never had any endoscopic evaluation in the past. In the emergency room, she was given the tolerate and hence we are consulted for possible upper endoscopy on an emergency basis. The patient denies any throat pain, reports no heartburn. PAST MEDICAL HISTORY: Significant for hypertension, degenerative joint disease, anxiety. PAST SURGICAL HISTORY: Unremarkable. MEDICATIONS: At home include: Xanax, Cozaar, Neurontin, , vitamin D2. ALLERGIES: PENICILLIN. SOCIAL HISTORY: No smoking. No alcohol use. FAMILY HISTORY: Unremarkable. REVIEW OF SYMPTOMS: Cardiopulmonary: No chest pain or shortness of breath. Genitourinary: No dysuria or hematuria. MUSCULOSKELETAL: Unremarkable. SKIN: Unremarkable. ENDOCRINE: Unremarkable. PSYCHIATRIC: Unremarkable. NEUROLOGICAL: Unremarkable. CONSTITUTIONAL: No recent weight loss. EXAMINATION: She appears comfortable in no apparent distress. Vital signs stable. Blood pressure is 156/83, pulse rate 87, temperature 98.1. HEENT examination unremarkable. Conjunctivae pink. Sclerae anicteric. Oral cavity no lesions. NECK: No jugular venous distention or lymph node enlargement. CHEST: The chest was clear to auscultation. HEART: Regular rate and rhythm. ABDOMEN: Soft, nontender, nondistended. Liver and spleen not palpable. Bowel sounds are positive. No organomegaly. EXTREMITIES: No pedal edema. SKIN: No rashes. NEUROLOGIC: Alert and oriented x3. No focal deficits. IMPRESSION: 1. Acute food impaction. The patient was shrimp for lunch and could not swallow any further.. Presently not able to swallow secretions or sips of the liquids. She had a similar episode about 2 years ago but did not need any endoscopy intervention. Symptoms have spontaneously resolved after she went to the emergency room at [facility]. It is likely we are dealing with esophageal stricture. RECOMMENDATIONS: We will proceed with an upper endoscopy in the emergency room at that time. I discussed with the patient the risks, benefits and complications of the procedure and she is agreeable to it. . SHONDAL / IJN: [id number] /
== END 2019-01-30 20:06 | disposition home or self-care (01) ==
LOC: EC 16:14
DX: T18.128A Food in esophagus causing other injury, initial encounter (principal); I10 Essential (primary) hypertension; F41.9 Anxiety disorder, unspecified; F32.9 Major depressive disorder, single episode, unspecified; F17.200 Nicotine dependence, unspecified, uncomplicated; Z79.899 Other long term (current) drug therapy; Z88.0 Allergy status to penicillin
CPT/HCPCS: 71045; 43247; 99284; 96374; 96375; 96361 ×3; J1610; J3360; J2001; J2704

== ENCOUNTER → 2019-02-12 | Outpatient (CLI) | payer MEDICARE ==
--- NOTE | 2019-02-12 17:33 | XR ---
EXAMINATION TYPE: XR Hip Complete RT DATE OF EXAM: 02/12/2019 COMPARISON: NONE HISTORY: 69 year-old female with right hip pain TECHNIQUE: 2 views FINDINGS: Mild marginal spurring at the right hip. Overall maintained hip joint space. Vascular calcifications in pelvis. No acute fracture, subluxation, or dislocation. IMPRESSION: No acute osseous abnormality seen. Mild degenerative spurring.
== END | disposition home or self-care (01) ==
LOC: RADXRMAIN 16:31
PROVIDERS: ATTEND Family Medicine
DX: M76.891 Other specified enthesopathies of right lower limb, excluding foot (principal)
CPT/HCPCS: 73502

== ENCOUNTER 2019-04-02 07:31 | Day surgery (SDC) | payer MEDICARE ==
[2019-04-01 09:49] VITALS: BMI 20.7
[~2019-04-02 07:31] MED LIST: LACTATED RINGERS 1,000 ML IV SCH; LIDOCAINE 1% 20 ML VIAL (10MG/ML) FOR IV START INTRADERMA PRN
[2019-04-02 08:02] VITALS: RESP 16; TEMP 98.2
[2019-04-02] MEDS ORDERED: PROPOFOL 10 MG/ML 20 ML VIAL IV ONE (08:09)
[2019-04-02] MEDS ORDERED: GLYCOPYRROLATE 0.2 MG/ML 2 ML VIAL ONE (08:09)
[2019-04-02] MEDS ORDERED: LIDOCAINE 1% INJ 10MG/ML (20 ML MDV) ONE (08:09)
--- NOTE | 2019-04-02 08:40 | P.PCN ---
Date of Procedure: 04/02/19 Procedure(s) Performed: Brief history: Patient is a pleasant 69-year-old white female, scheduled for an elective upper endoscopy as well as colonoscopy as a part of evaluation of intermittent dysphagia to solids and chronic diarrhea. She had an episode of food impaction requiring an emergency upper endoscopy a month ago. Also has been having chronic diarrhea for the last several months. Procedure performed: Esophagogastroduodenoscopy with biopsy and dilation Colonoscopy with biopsy Preoperative diagnosis: Intermittent dysphagia to solids/recent episode of food impaction Chronic diarrhea Anesthesia: MAC Procedure: After informed consent was obtained from the patient was brought into the endoscopy unit and IV sedation was administered by anesthesia under continuous monitoring. Initially upper endoscopy was done. The Olympus GF 160 video endoscope was inserted inserted into the mouth and esophagus intubated without any difficulty and was gradually advanced into the distal esophagus where there was an esophageal stricture identified. Scope could not be advanced through the stricture despite applying moderate pressure. At this time balloon dilation was performed using 10-12 mm TTS balloon in a sequential fashion for total of 90 seconds. Following this I was able to advance the scope into the stomach and duodenum and carefully examined. The bulb and second part of the duodenum appeared normal. The scope was then withdrawn into the stomach adequately insufflated with air and upon careful examination the antrum and body, and diffuse gastritis and biopsies were done from this area. The cardia and fundus appeared normal. The scope was then withdrawn into the esophagus. Small hiatal hernia noted. The GE junction was located at 37 cm to the incisors. There was some mucosal oozing identified the site of dilation of esophageal stricture located at 37 cm from the incisors. It appeared regular with no erythema erosions or ulcerations. Rest of the esophagus appeared normal. Patient tolerated the procedure well. At this time the patient continued to remain sedation. Initial digital rectal examination was normal. Olympus CF 160 video colonoscope was then inserted into the rectum and gradually advanced to the right colon without any difficulty. There was a stricture encountered. The mucosa just proximal to the stricture appeared very erythematous friable. It was unclear whether we are dealing with a stricture versus anastomosis from previous surgery. However multiple biopsies were done from the strictured area. Mucosa of the rest of the ascending colon, transverse colon, descending colon, sigmoid colon and rectum appeared normal. As mild proctitis noted in the distal rectum which was also biopsied. Retroflexion was performed in the rectum and no lesions were noted. Patient tolerated the procedure well. Impression: 1. Upper endoscopy revealed tight distal esophageal stricture status post balloon dilation using 10-12 mm TTS balloon as described above, small hiatal hernia and diffuse atrophic gastritis 2. Colonoscopy revealed stricture in the right colon possibly at the ileocolic anastomosis with mucosal erythema and friability of the mucosa adjacent to the stricture and multiple biopsies were done from this area. Mild proctitis noted. No evidence of colorectal neoplasia Recommendations: Findings of this examination were discussed with the patient as well as a family. She was advised to remain on clear liquid diet today. She will continue with Prilosec 20 mg daily and follow antireflux measures. She'll follow with the biopsy results. She was advised to follow up in office in 2-3 weeks.
[2019-04-02 09:01] VITALS: BP 172/96; PULSE 70
== END 2019-04-02 09:25 | disposition home or self-care (01) ==
LOC: ORWHC2ENDO 07:31
PROVIDERS: ATTEND Internal Medicine Gastroenterology
DX: K22.2 Esophageal obstruction (principal); K29.40 Chronic atrophic gastritis without bleeding; K51.80 Other ulcerative colitis without complications; K44.9 Diaphragmatic hernia without obstruction or gangrene; Z88.0 Allergy status to penicillin; I10 Essential (primary) hypertension; F90.9 Attention-deficit hyperactivity disorder, unspecified type; Z79.899 Other long term (current) drug therapy; F41.9 Anxiety disorder, unspecified; F32.9 Major depressive disorder, single episode, unspecified
CPT/HCPCS: 88305; 45380; 43239; 43249; J2001; J2704; C1726

== ENCOUNTER → 2019-07-03 | Outpatient (CLI) | payer MEDICARE ==
--- NOTE | 2019-07-06 13:44 | BD ---
EXAMINATION TYPE: Axial Bone Density DATE OF EXAM: 07/03/2019 COMPARISON: NONE CLINICAL HISTORY: Height: 5 FT 7 IN Weight: 137 FRAX RISK QUESTIONS: History of Fracture in Adulthood: YES Secondary Osteoporosis: Current Tobacco Use: YES RISK FACTORS HISTORY OF: History of Wrist Fracture: RT When: 2018 Surgery to Spine/Hip(right/left)/Wrist (right/left): RT WRIST When: 2018 Active: Postmenopausal woman: LATE 40'S Lost more than 2 inches in height since high school: YES MEDICATIONS: Additional Medications: NEURONTIN,TRAMADOL, VIT D PROZAC, BP MEDS Additional History: CHRONES, EXAM MEASUREMENTS: Bone mineral densitometry was performed using the [employer]. Bone mineral density as measured about the Lumbar spine is: ----- L1-L4(G/cm2): 0.646 T Score Values are as follows: ----- L2: -5.7 ----- L3: -4.0 ----- L4: -4.0 ----- L1-L4: -4.5 Bone mineral density has: INCREASED 11.8 % since study of: 2017 Bone mineral density about the R hip (g/cm2): 0.554 Bone mineral density about the L hip (g/cm2): 0.586 T Score values are as follows: -----R Neck: -3.5 -----L Neck: -3.2 -----R Total: -3.5 -----L Total: -3.3 Bone mineral density has: INCREASED 6.2 % since study of: 2017 IMPRESSION: Osteoporosis (T Score less than -2.5). There is increased fracture risk and therapy is usually indicated based on age. Re-Screen 1-2 years. NOTE: T-SCORE=SD OF THE YOUNG ADULT MEAN.
== END | disposition home or self-care (01) ==
LOC: RADBDWWP 16:24
PROVIDERS: ATTEND Family Medicine
DX: M81.0 Age-related osteoporosis without current pathological fracture (principal)
CPT/HCPCS: 77080

== ENCOUNTER → 2019-09-01 | Outpatient (CLI) | payer MEDICARE ==
[~2019-09-01] MED LIST changes: +DENOSUMAB 60 MG/ML 1 ML SYRINGE SQ NR; +DENOSUMAB 60 MG/ML 1 ML SYRINGE SQ ONE; -LACTATED RINGERS 1,000 ML IV SCH; -LIDOCAINE 1% 20 ML VIAL (10MG/ML) FOR IV START INTRADERMA PRN
[2019-09-01 14:12] VITALS: BP 152/89; PULSE 90; RESP 16; TEMP 97.9
== END | disposition home or self-care (01) ==
LOC: PROCWHC3 13:59
PROVIDERS: ATTEND Internal Medicine Endocrinology, Diabetes & Metabolism
DX: M81.0 Age-related osteoporosis without current pathological fracture (principal)

== ENCOUNTER → 2019-12-26 | Outpatient (CLI) | payer MEDICARE | END | disposition home or self-care (01) | LOC: RADMRIMAIN 09:17 | PROVIDERS: ATTEND Family Medicine | DX: Z53.9 Procedure and treatment not carried out, unspecified reason (principal) ==

== ENCOUNTER 2020-05-15 09:26 | Emergency (ER) | payer MEDICARE ==
[2020-05-15] MEDS ORDERED: HYDROmorphone 1 MG/ML 1 ML SYRINGE IM STA (09:56)
--- NOTE | 2020-05-15 10:03 | ED ---
General Adult HPI - General Chief complaint: Back Pain/Injury Stated complaint: Back Pain Time Seen by Provider: 05/15/20 09:31 Source: patient, EMS, RN notes reviewed Mode of arrival: EMS Limitations: no limitations - History of Present Illness Initial comments: Patient is a pleasant 70-year-old female presenting to the emergency Department with complaints of back spasms. Symptoms have or see over the past couple of weeks. Patient has known compression fractures. Patient sees Dr. Mercado and has had injections. Patient did have recent x-rays and MRI. Patient does have MRI report at home however has not followed up with Dr. Mercado since her MRI was done. No leg weakness or loss of sensation. Patient has been having occasional incontinence over the past month. This is not change in the past few weeks. No change in symptoms since her MRI has been done. Patient has had some incontinence previous to the past month however not as frequently. Incontinence is urinary incontinence and not rectal incontinence. NO Retention. - Related Data Home Medications Medication Instructions Recorded Confirmed ALPRAZolam [Xanax] 0.5 mg PO DAILY PRN 05/25/17 09/01/19 FLUoxetine HCL [PROzac] 20 mg PO BID 05/25/17 09/01/19 Gabapentin [Neurontin] 600 mg PO Q8H 05/25/17 09/01/19 amLODIPine [Norvasc] 5 mg PO DAILY 07/04/17 09/01/19 cloNIDine HCL [Catapres] 0.1 mg PO DAILY 07/04/17 09/01/19 hydrALAZINE HCL [Apresoline] 100 mg PO DAILY 07/04/17 09/01/19 Ergocalciferol [Vitamin D2] 50,000 unit PO MO 01/30/19 09/01/19 Celecoxib [CeleBREX] 200 mg PO DAILY 04/01/19 09/01/19 Diphenox-Atrop 2.5-0.025 mg 1 tab PO DAILY PRN 04/01/19 09/01/19 [Lomotil] Ibuprofen [Advil] 400 - 600 mg PO Q8HR PRN 04/01/19 09/01/19 traMADol HCl [Ultram] 50 mg PO DAILY 04/01/19 09/01/19 Previous Rx's Medication Instructions Recorded methylPREDNISolone Dose Pack 24 mg PO DAILY #1 tab 05/15/20 [Medrol Dose Pack] Allergies Allergy/AdvReac Type Severity Reaction Status Date / Time Penicillins Allergy Unknown Verified 09/01/19 14:10 Childhood Review of Systems ROS Statement: Those systems with pertinent positive or pertinent negative responses have been documented in the HPI. ROS Other: All systems not noted in ROS Statement are negative. Constitutional: Denies: fever Eyes: Denies: eye pain ENT: Denies: ear pain Respiratory: Denies: cough Cardiovascular: Denies: chest pain Endocrine: Denies: fatigue Gastrointestinal: Denies: abdominal pain, nausea, vomiting Genitourinary: Reports: as per HPI. Denies: dysuria Musculoskeletal: Reports: as per HPI, back pain Skin: Denies: rash Neurological: Denies: weakness, paresthesias Past Medical History Past Medical History: Hypertension Additional Past Medical History / Comment(s): L5 compression fracture. crohns. ADHD History of Any Multi-Drug Resistant Organisms: None Reported Past Surgical History: Tubal Ligation Additional Past Surgical History / Comment(s): REMOVAL OF SHRIMP FROM ESOPHAGUS. COLONOSCOPY. EGD Past Anesthesia/Blood Transfusion Reactions: No Reported Reaction Past Psychological History: ADD/ADHD, Anxiety, Depression Past Alcohol Use History: None Reported Past Drug Use History: Marijuana - Past Family History Mother Family Medical History: Cancer Additional Family Medical History / Comment(s): HODGKIN'S LYMPHOMA General Exam Limitations: no limitations General appearance: alert, in no apparent distress Head exam: Present: normocephalic Eye exam: Present: normal appearance Neck exam: Present: normal inspection Respiratory exam: Present: normal lung sounds bilaterally Cardiovascular Exam: Present: regular rate, normal rhythm Expanded Peripheral pulses: 2+: Dorsalis Pedis (R), Dorsalis Pedis (L) GI/Abdominal exam: Present: soft. Absent: tenderness Rectal exam: Present: other (Patient refuses) Extremities exam: Present: normal inspection Back exam: Present: normal inspection. Absent: tenderness, vertebral tenderness Neurological exam: Present: alert. Absent: motor sensory deficit Expanded Sensory exam: Lower Extremity Light Touch: Normal Motor strength exam: RLE: 5, LLE: 5 Psychiatric exam: Present: normal affect, normal mood Skin exam: Present: normal color Course Vital Signs 05/15/20 09:29 Temperature 98 F Pulse Rate 77 Respiratory 20 Rate Blood Pressure 150/91 O2 Sat by Pulse 95 Oximetry - Reevaluation(s) Reevaluation #1: 05/15/20 09:58 Patient refusing rectal exam. Patient is on muscle relaxers at home. Case was discussed with Dr. Jaimes including history and physical and incontinence history, who is comfortable with letting patient be discharged and follow-up with Dr. Mercado on Sunday. He is agreeable with steroids. 05/15/20 11:02 Patient reevaluated and significantly improved. Patient is comfortable with plan and discharge. Patient is agreeable to follow-up Dr. Mercado on Sunday. Disposition Clinical Impression: Back pain Disposition: HOME SELF-CARE Condition: Stable Instructions (If sedation given, give patient instructions): Back Pain (ED) Additional Instructions: Please follow-up with Dr. Mercado on Sunday. Please also follow-up with primary care physician in the next day or 2 for recheck. Prescription sent to your pharmacy. Return for weakness, increasing incontinence, fevers, worsening or changing symptoms or other concerns. Prescriptions: methylPREDNISolone Dose Pack [Medrol Dose Pack] 24 mg PO DAILY #1 tab Is patient prescribed a controlled substance at d/c from ED?: No Referrals: Delfino Muller DO [Primary Care Provider] - 1-2 days Jas Mercado DO [Doctor of Osteopathic Medicine] - 1-2 days Time of Disposition: 11:04
[2020-05-15] MEDS ORDERED: methylPREDNISolone SOD SUCCI 125 MG/2 ML VIAL IM ONE (11:01)
[2020-05-15] MEDS ORDERED: ORPHENADRINE 30 MG/ML 2 ML VIAL IM STA (11:01)
[2020-05-15 11:31] VITALS: BP 157/81; PULSE 80; RESP 18; TEMP 97.4
== END 2020-05-15 12:08 | disposition home or self-care (01) ==
LOC: EC 09:26
DX: M54.9 Dorsalgia, unspecified (principal); I10 Essential (primary) hypertension; F41.9 Anxiety disorder, unspecified; F32.9 Major depressive disorder, single episode, unspecified; F90.9 Attention-deficit hyperactivity disorder, unspecified type; Z79.1 Long term (current) use of non-steroidal anti-inflammatories (NSAID); Z79.899 Other long term (current) drug therapy; Z88.0 Allergy status to penicillin; Z87.311 Personal history of (healed) other pathological fracture
CPT/HCPCS: 99283; 96372 ×3; J2360; J2930; J1170

== ENCOUNTER → 2020-06-04 | Outpatient (CLI) | payer MEDICARE | END | disposition home or self-care (01) | LOC: LABWHC1 11:44 | PROVIDERS: ATTEND Family Medicine | DX: Z53.9 Procedure and treatment not carried out, unspecified reason (principal) ==

== ENCOUNTER → 2020-06-07 | Outpatient (CLI) | payer MEDICARE | END | disposition home or self-care (01) | LOC: LABWHC1 11:00 | PROVIDERS: ATTEND Family Medicine | DX: Z53.9 Procedure and treatment not carried out, unspecified reason (principal) ==

== ENCOUNTER → 2020-06-08 | Outpatient (CLI) | payer MEDICARE | END | disposition home or self-care (01) | LOC: LABWHC1 08:56 | PROVIDERS: ATTEND Family Medicine | DX: Z03.818 Encounter for observation for suspected exposure to other biological agents ruled out (principal); R61 Generalized hyperhidrosis | CPT/HCPCS: U0003; C9803 ==

== ENCOUNTER → 2020-10-06 | Outpatient (CLI) | payer MEDICARE ==
--- NOTE | 2020-10-07 00:42 | CT ---
EXAMINATION TYPE: CT thor lumbar spine wo con DATE OF EXAM: 10/06/2020 COMPARISON: 07/04/2017. HISTORY: Low back pain, thoracic pain. Hx spinal fractures. CT DLP: 750.6 mGycm TECHNIQUE: Axial CT images of the thoracolumbar spine was performed without contrast. Coronal and sag ittal reformats were generated and reviewed. Automated exposure control for dose reduction was used. FINDINGS: There is generalized osteopenia. There is no acute fracture or subluxation. There is redemonstration of 1.2 cm anterior spinal canal l esion at T9-T10 level, appears dural based. There are moderate compression deformities of T8, T11 and T12 and mild to moderate L2 and L3. There is multilevel mild disc height narrowing of the thoracolumbar spine. There is moderate facet ar thropathy in the lower lumbar spine. There is mild dextroconvex curvature of the lumbar spine. No significant paraspinal soft tissue abnormality. Limited evaluation of the lungs and abdomen, demonstrate no acute abnormality. Moderate centrilobular emphysema is seen. IMPRESSION: NO ACUTE ABNORMALITY OF THE THORACOLUMBAR SPINE. MULTILEVEL CHRONIC THORACOLUMBAR SPINE FRACTURES WITH MILD TO MODERATE COMPRESSION DEFORMITIES ENU MERATED ABOVE. THE THORACIC SPINE FRACTURES ARE HOWEVER NEW COMPARED TO 2017 CT AND THERE HAS ALSO B EEN INTERVAL MILD PROGRESSION OF HEIGHT LOSS OF THE LUMBAR SPINE FRACTURES. Mild to moderate thoracolumbar spondylosis. Redemonstrated 1.2 cm in the dural-based spinal canal lesion at T9-T10 level. Recommend correlation t o outside MRI from 07/09/2020.
== END | disposition home or self-care (01) ==
LOC: RADCTMAIN 17:29
PROVIDERS: ATTEND Orthopaedic Surgery
DX: M43.8X5 Other specified deforming dorsopathies, thoracolumbar region (principal); M47.815 Spondylosis without myelopathy or radiculopathy, thoracolumbar region; G95.89 Other specified diseases of spinal cord; S22.008A Other fracture of unspecified thoracic vertebra, initial encounter for closed fracture; S32.008A Other fracture of unspecified lumbar vertebra, initial encounter for closed fracture; Z88.0 Allergy status to penicillin
CPT/HCPCS: 72128; 72131

== ENCOUNTER 2021-02-18 15:56 | Emergency (ER) | payer MEDICARE ==
[2021-02-18] MEDS ORDERED: MORPHINE SULFATE 2 MG/ML SYRINGE IM STA (17:02)
--- NOTE | 2021-02-18 17:17 | ED ---
Fall HPI - General Chief Complaint: Fall Stated Complaint: fall Time Seen by Provider: 02/18/21 16:32 Source: patient, EMS Mode of arrival: EMS - History of Present Illness Initial Comments: Patient is a 71-year-old female presenting to the emergency department complaints of right shoulder pain after she fell about an hour prior to arrival. Patient states she tripped on a small ledge on the cement and fell forward landing mostly on her right shoulder. She states she did scan her nose a little bit as well. She did not hit her head hard. She denies loss of consciousness, she is not on blood thinners. She also is complaining of some right wrist pain as well as right knee pain. She states she was able to ambulate without difficulty. She denies any chest pain or shortness of breath, no abdominal pain, no nausea or vomiting. No lightheadedness or dizziness. She denies any previous surgeries or injuries to her right shoulder. She has no further complaints at this time. - Related Data Home Medications Medication Instructions Recorded Confirmed FLUoxetine HCL [PROzac] 20 mg PO BID 05/25/17 02/18/21 amLODIPine [Norvasc] 5 mg PO DAILY 07/04/17 02/18/21 cloNIDine HCL [Catapres] 0.1 mg PO Q12H 07/04/17 02/18/21 hydrALAZINE HCL [Apresoline] 100 mg PO TID 07/04/17 02/18/21 Previous Rx's Medication Instructions Recorded HYDROcodone/APAP 7.5-325MG [Havelock 1 tab PO Q6HR PRN 3 Days #12 tab 02/18/21 7.5-325] Allergies Allergy/AdvReac Type Severity Reaction Status Date / Time Penicillins Allergy Unknown Verified 02/18/21 18:14 Childhood Review of Systems ROS Statement: Those systems with pertinent positive or pertinent negative responses have been documented in the HPI. ROS Other: All systems not noted in ROS Statement are negative. Past Medical History Past Medical History: Hypertension Additional Past Medical History / Comment(s): L5 compression fracture. crohns. ADHD History of Any Multi-Drug Resistant Organisms: None Reported Past Surgical History: Tubal Ligation Additional Past Surgical History / Comment(s): REMOVAL OF SHRIMP FROM ESOPHAGUS. COLONOSCOPY. EGD Past Anesthesia/Blood Transfusion Reactions: No Reported Reaction Past Psychological History: ADD/ADHD, Anxiety, Depression Smoking Status: Current every day smoker Past Alcohol Use History: None Reported Past Drug Use History: Marijuana - Past Family History Mother Family Medical History: Cancer Additional Family Medical History / Comment(s): HODGKIN'S LYMPHOMA General Exam - General Exam Comments Initial Comments: GENERAL: Patient is well-developed and well-nourished. Patient is nontoxic and in mild distress. HEAD: Atraumatic, normocephalic. There are no hematomas, no signs of basal skull fracture. EYES: Pupils equal round and reactive to light, extraocular movements intact, sclera anicteric, conjunctiva are normal. Eyelids were unremarkable. ENT: TMs normal, nares patent, oropharynx clear without exudates. Moist mucous membranes. NECK: Normal range of motion, supple without lymphadenopathy or JVD. She has full range of motion, no midline tenderness. LUNGS: Unlabored respirations. Breath sounds clear to auscultation bilaterally and equal. No wheezes rales or rhonchi. HEART: Regular rate and rhythm without murmurs, rubs or gallops. ABDOMEN: Soft, nontender, normoactive bowel sounds. No guarding, no rebound. No masses appreciated. : Deferred MUSCULOSKELETAL: Patient has guarding and unwilling to actively move the right shoulder, she has pain in the right shoulder, right upper arm. She does have some swelling to this area well. She is neurovascular intact, she is able to squeeze my hand. She does have some mild discomfort of the dorsum of the right wrist, mild swelling to this area as well. Patient does have some mild pain of the right knee however there is no swelling, no deformity, she has full active range of motion of the right knee. No clubbing or cyanosis. NEUROLOGICAL: Patient is alert and oriented x 3. Motor and sensory are also intact. Cranial nerves II through XII grossly intact. Symmetrical smile. Normal speech, normal gait. PSYCH: Normal mood, normal affect. SKIN: Warm, Dry, normal turgor, no rashes. Patient has mild abrasion noted to her nasal bone, to her left upper lip as well as to her right knee, these are all superficial abrasions, no active bleeding. No sutures indicated. Limitations: no limitations Course Vital Signs 02/18/21 02/18/21 02/18/21 16:12 17:16 18:20 Temperature 97.9 F 97.1 F L Pulse Rate 88 77 88 Respiratory 20 18 20 Rate Blood Pressure 145/92 138/68 156/78 O2 Sat by Pulse 97 99 98 Oximetry Medical Decision Making - Medical Decision Making A 71-year-old female here after a fall injuring her right shoulder. She tripped on the sidewalk and fell forward, landing on her right shoulder also has some mild abrasions to her nose and right knee. Right shoulder x-ray reveals an acute impacted humeral neck fracture. No other fracture seen on her wrist or knee x-rays. Patient was given pain medicine here in the ER. Patient was placed in a sling and will follow up with orthopedics. Patient is also given prescription for pain control. She is stable for discharge and she is in agreement this plan of care. Case discussed with Dr. Buchanan. Disposition Clinical Impression: Fall, Fracture of neck of right humerus Disposition: HOME SELF-CARE Condition: Stable Instructions (If sedation given, give patient instructions): Arm Fracture in Adults (ED) Additional Instructions: Please return to the Emergency Department if symptoms worsen or any other concerns. Sling in place until follow-up with orthopedics, may remove for changing clothes, showers. Take Tylenol and ibuprofen for discomfort, may take Havelock's for more severe pain. Follow-up with orthopedics. Prescriptions: HYDROcodone/APAP 7.5-325MG [Havelock 7.5-325] 1 tab PO Q6HR PRN 3 Days #12 tab PRN Reason: Pain Is patient prescribed a controlled substance at d/c from ED?: Yes When asked, does pt state using other controlled substances?: No If prescribed controlled substance>3 days was MAPS reviewed?: Prescribed <3 Days If opioid is for acute pain is fill amount 7 days or less?: Yes If Rx opioid, was Start Talking consent form obtained?: Yes Referrals: Claudio Anderson MD [Primary Care Provider] - 1-2 days Brenden Jaimes DO [Doctor of Osteopathic Medicine] - 1-2 days Time of Disposition: 18:06
--- NOTE | 2021-02-18 17:38 | XR ---
EXAMINATION TYPE: XR shoulder complete RT DATE OF EXAM: 02/18/2021 COMPARISON: NONE HISTORY: Pain after falling TECHNIQUE: 3 views FINDINGS: There is impacted comminuted fractures of the humeral neck. There is no dislocation. Scapul a appears intact. AC joint is intact. IMPRESSION: Acute impacted humeral neck fracture with comminution.
--- NOTE | 2021-02-18 17:39 | XR ---
EXAMINATION TYPE: XR knee complete RT DATE OF EXAM: 02/18/2021 COMPARISON: NONE HISTORY: Pain TECHNIQUE: 3 views FINDINGS: I see no fracture nor dislocation. Joint spaces are normal. There is no evidence of joint e ffusion. There is mild vascular calcification. IMPRESSION: Negative right knee exam. No fracture.
--- NOTE | 2021-02-18 17:40 | XR ---
EXAMINATION TYPE: XR humerus RT DATE OF EXAM: 02/18/2021 COMPARISON: NONE HISTORY: Fall. Pain. TECHNIQUE: 3 views FINDINGS: There is impacted comminuted humeral neck fracture. There is no dislocation at the shoulder joint. The elbow joint appears intact. IMPRESSION: Acute impacted comminuted humeral neck fracture.
--- NOTE | 2021-02-18 17:42 | XR ---
EXAMINATION TYPE: XR wrist complete RT DATE OF EXAM: 02/18/2021 COMPARISON: 05/07/2018 HISTORY: Pain after falling TECHNIQUE: 4 views FINDINGS: There is plate with screws fixing old fracture of the distal radius. I see no acute fractur e nor dislocation. Carpal bones are intact. The metacarpals appear intact. IMPRESSION: Old healed fracture of the distal radius. No acute fracture seen.
[2021-02-18 18:58] VITALS: BP 156/78; PULSE 88; RESP 20; TEMP 97.1
== END 2021-02-18 18:20 | disposition home or self-care (01) ==
LOC: EC 15:56
DX: S42.291A Other displaced fracture of upper end of right humerus, initial encounter for closed fracture (principal); S00.31XA Abrasion of nose, initial encounter; S00.511A Abrasion of lip, initial encounter; S80.211A Abrasion, right knee, initial encounter; M25.531 Pain in right wrist; I10 Essential (primary) hypertension; F17.200 Nicotine dependence, unspecified, uncomplicated; Z98.51 Tubal ligation status; F32.9 Major depressive disorder, single episode, unspecified; F12.90 Cannabis use, unspecified, uncomplicated; W01.0XXA Fall on same level from slipping, tripping and stumbling without subsequent striking against object, initial encounter
CPT/HCPCS: 73030; 73060; 73110; 73562; 99283; 96372; J2270

== ENCOUNTER → 2022-01-31 | Outpatient (CLI) | payer MEDICARE ==
--- NOTE | 2022-01-31 22:33 | BD ---
EXAMINATION TYPE: Axial Bone Density DATE OF EXAM: 01/31/2022 COMPARISON: Prior bone scan July 03, 2019 CLINICAL HISTORY: 72 years year old Female. ICD-10 CODE: Z78.0 asymptomatic menopausal state Height: 66 Weight: 131.8 FRAX RISK QUESTIONS: Alcohol (3 or more units per day): NO Family History (Parent hip fracture): YES MOTHER Glucocorticoids (More than 3mos): NO (Ex: prednisone, prednisolone, methylprednisolone, dexamethasone, and hydrocortisone). History of Fracture in Adulthood: WRIST, SHOULDER Secondary Osteoporosis: 1. Type 1 Diabetes: NO 2. Hyperthyroidism: NO 3. Menopause before 45: NO 4. Malnutrition: NO 5. Chronic liver disease: NO Rheumatoid Arthritis: NO Current Tobacco Use: YES RISK FACTORS HISTORY OF: Hip Fracture (Right/Left): NO Spine Fracture: NO History of Wrist Fracture: YES When: AGE 69 Surgery to Spine/Hip(right/left)/Wrist (right/left): RT WRIST When: AGE 69 Family History of Osteoporosis: NO Active: NO Diet low in dairy products/other sources of calcium: YES Postmenopausal woman: YES Take estrogen and/or progesterone medications: NO Lost more than 2 inches in height since high school: YES Frequent falls: NO Poor Health: YES Hyperparathyroidism: NO Adrenal Insufficiency: NO MEDICATIONS: Prednisone or other steroids: NO Thyroid Medications: NO Osteoporosis Medications INJECTION DAILY PAST 2 YEARS Additional Medications: BP MEDS, PROZAC, CALCIUM, VIT D, NARCO, ADDERALL , CELEBREX, Additional History: EXAM MEASUREMENTS: Bone mineral densitometry was performed using the [employer] System. Bone mineral density as measured about the Lumbar spine is: ----- L1-L4(G/cm2): 0.628 T Score Values are as follows: ----- L1: -4.4 ----- L2: -4.4 ----- L3: -5.2 ----- L4: -4.5 ----- L1-L4: -4.6 Bone mineral density has: DECREASED 4.1 % since study of: 2018 Bone mineral density about the R hip (g/cm2): 0.520 Bone mineral density about the L hip (g/cm2): 0.552 T Score values are as follows: -----R Neck: -3.7 -----L Neck: -3.5 -----R Total: -3.8 -----L Total: -3.8 Bone mineral density has: DECREASED 9.5 % since study of: 2019 FRAX%s: The graph provided illustrates a 43.5% chance for a major osteoporotic fx and a 28.8% chance for the hips probability for fx in 10 years time. IMPRESSION: Osteoporosis (T Score less than -2.5). There is increased fracture risk and therapy is usually indicated based on age. Re-Screen 1-2 years. NOTE: T-SCORE=SD OF THE YOUNG ADULT MEAN.
== END | disposition home or self-care (01) ==
LOC: RADBDWWP 16:34
PROVIDERS: ATTEND Family Medicine
DX: M81.0 Age-related osteoporosis without current pathological fracture (principal); Z78.0 Asymptomatic menopausal state
CPT/HCPCS: 77080

== ENCOUNTER → 2023-04-05 | Outpatient (CLI) | payer MEDICARE ==
--- NOTE | 2023-04-06 08:35 | BD ---
EXAMINATION TYPE: Axial Bone Density DATE OF EXAM: 04/05/2023 CLINICAL HISTORY: 73 year old Female. ICD-10 CODE: M81.0 AGE-RELATED OSTEOPOROSIS W/O CURRENT PATHOL OGY Comparison: Prior study 2021. Height: 66 Weight: 137.4 FRAX RISK QUESTIONS: Alcohol (3 or more units per day): no Family History (Parent hip fracture): no Glucocorticoids (More than 3mos): no (Ex: prednisone, prednisolone, methylprednisolone, dexamethasone, and hydrocortisone). History of Fracture in Adulthood: yes Secondary Osteoporosis: 1. Type 1 Diabetes: no 2. Hyperthyroidism: no 3. Menopause before 45: no 4. Malnutrition: no 5. Chronic liver disease: no Rheumatoid Arthritis: no Current Tobacco Use: yes RISK FACTORS HISTORY OF: History of Wrist Fracture: right When: age 69 Surgery to Spine/Hip(right/left)/Wrist (right/left): right wrist When: age 69 Family History of Osteoporosis: no Diet low in dairy products/other sources of calcium: no Postmenopausal woman: yes Lost more than 2 inches in height since high school: yes MEDICATIONS: Osteoporosis Medications: used to take the shot stopped 6 months ago Additional History: EXAM MEASUREMENTS: Bone mineral densitometry was performed using the [employer] System. Bone mineral density as measured about the Lumbar spine is: ----- L1-L4(G/cm2): 0.666 T Score Values are as follows: ----- L1: -4.1 ----- L2: -4.9 ----- L3: -4.4 ----- L4: -4.0 ----- L1-L4: -4.3 Z Score Values are as follows: ----- L1: -2.3 ----- L2: -3.1 ----- L3: -2.6 ----- L4: -2.2 ----- L1-L4: -2.5 Bone mineral density has: increased 6.1 % since study of: 01.31.2022 Bone mineral density about the R hip (g/cm2): 0.532 Bone mineral density about the L hip (g/cm2): 0.592 T Score values are as follows: -----R Neck: -3.6 -----L Neck: -3.2 -----R Total: -3.8 -----L Total: -3.3 Z Score values are as follows: -----R Neck: -1.7 -----L Neck: -1.3 -----R Total: -2.0 -----L Total: -1.6 Bone mineral density has: increased 6.6 % since study of: 4..2021 FRAX%s: The graph provided illustrates a 42.8% chance for a major osteoporotic fx and a 27.8% chance for the hips probability for fx in 10 years time. IMPRESSION: Osteoporosis (T Score less than -2.5) remains present. There is increased fracture risk and therapy is usually indicated based on age. Re-Screen 1-2 years. NOTE: T-SCORE=SD OF THE YOUNG ADULT MEAN.
== END | disposition home or self-care (01) ==
LOC: RADBDWWP 16:19
PROVIDERS: ATTEND Internal Medicine Endocrinology, Diabetes & Metabolism
DX: M81.0 Age-related osteoporosis without current pathological fracture (principal); M85.89 Other specified disorders of bone density and structure, multiple sites
CPT/HCPCS: 77080

== ENCOUNTER → 2023-08-07 | Outpatient (CLI) | payer MEDICARE ==
--- NOTE | 2023-08-07 16:40 | US ---
EXAMINATION TYPE: US carotid duplex BILAT DATE OF EXAM: 08/07/2023 COMPARISON: 12/14/17 CLINICAL INDICATION: Female, 73 years old with history of I65.23 CAROTID STENOSIS; carotid stenosis TECHNIQUE: Carotid duplex ultrasound examination. Indirect Doppler criteria was utilized. 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 Criteria for Assigning % of Stenosis / Diameter reduction (Estimation based on the indirect measurements of the internal carotid artery velocities (ICA PSV). 1. Normal (no stenosis)=ICA PSV < 125 cm/s: ratio < 2.0: ICA EDV<40 cm/s. 2. Less than 50% stenosis=ICA PSV < 125 cm/s: ratio < 2.0: ICA EDV<40 cm/s. 3. 50 to 69% stenosis=ICA PSV of 125 to 230 cm/s: ration 2.0 ? 4.0: ICA EDV 40-100 cm/s. 4. Greater than 70% stenosis to near occlusion= ICA PSV > 230 cm/s: ratio > 4.0: ICA EDV > 100 cm/s. 5. Near occlusion= ICA PSV velocities may be low or undetectable: variable ratio and ICA EDV. 6. Total occlusion=unable to detect flow.
--- NOTE | 2023-08-08 09:05 | CTL ---
EXAMINATION TYPE: CT Low Dose Lung DATE OF EXAM ORDERED: 08/07/2023 HISTORY: . Lung cancer screening CT DLP: 89.[address] CTDI: 2.3 mGy Automated exposure control for dose reduction was used. SCREENING VISIT: COMPARISON: 07/04/2017 TECHNIQUE: Low dose computed tomography scan was performed through the chest at 1 mm thick sections a nd reconstructed images in multiple planes at 1 mm and [address] DIAGNOSTIC QUALITY: Satisfactory FINDINGS: There is biapical pleural thickening or scarring. There is subcentimeter subpleural micronodules. There is a 5 mm nodule in the left lower lobe axial image 40. There is a 6 mm calcified granuloma rig ht middle lobe axial image 221 No consolidative pneumonia. No pleural effusion. No pneumothorax. Calcified lymph nodes are seen. Noncontrast technique limits assessment pathologic adenopathy grossly not identified. Correlate for chronic granulomatous disease. Coronary artery calcification is seen in the trace pericardial fluid. The heart size is atherosclerot ic change of the aorta which measures a maximum 3.7 cm. There is a moderate-sized hiatal hernia. Hypertrophic and degenerative changes spine with multiple co mpression deformities which appear chronic. Diffuse osteopenia. IMPRESSION: 1. Pulmonary nodules as noted above with mild emphysematous changes. 2. Moderate-sized hiatal hernia. 3. Coronary artery calcification 4. Emphysematous changes. CT LUNG RAD AND CT CHEST RECOMMENDATION: Lung-Rad 2 Benign Appearance or Behavior: Continue annual sc reening with LDCT in 12 months.
== END | disposition home or self-care (01) ==
LOC: RADUSWWP 16:02
PROVIDERS: ATTEND Internal Medicine
DX: Z12.2 Encounter for screening for malignant neoplasm of respiratory organs (principal); I65.23 Occlusion and stenosis of bilateral carotid arteries; F17.210 Nicotine dependence, cigarettes, uncomplicated; K44.9 Diaphragmatic hernia without obstruction or gangrene; J43.9 Emphysema, unspecified; I25.10 Atherosclerotic heart disease of native coronary artery without angina pectoris; R91.8 Other nonspecific abnormal finding of lung field
CPT/HCPCS: 71271; 93880

== ENCOUNTER 2024-03-27 16:31 | Emergency (ER) | payer MEDICARE ==
--- NOTE | 2024-03-27 17:43 | ED ---
General Adult HPI - General Chief complaint: Recheck/Abnormal Lab/Rx Stated complaint: AFIB Time Seen by Provider: 03/27/24 16:38 Source: patient Mode of arrival: ambulatory Limitations: no limitations - History of Present Illness Initial comments: Leslie is a 74-year-old female who presents to the emergency department today from her primary care office for evaluation of tachycardia, irregular heartbeat. Patient states she went to her primary care office this morning for routine visit her primary care doctor noted that she was diaphoretic and tachycardic he did an EKG and noted some irregularity he was concerned that she had new onset A-fib and advised her to come to the hospital for evaluation. Patient denies any cardiac history she has no history of arrhythmias no history of A-fib. Patient does admit that she took caffeine pills this morning, she does not drink coffee or energy drinks and states that she usually takes a caffeine pill in the mornings when she is tired. Patient denies any recent illness she denies any chest pain she has not felt any palpitations or lightheadedness. - Related Data Home Medications Medication Instructions Recorded Confirmed amLODIPine [Norvasc] 5 mg PO DAILY 07/04/17 03/27/24 cloNIDine HCL [Catapres] 0.1 mg PO HS 07/04/17 03/27/24 ALPRAZolam [Xanax] 0.5 mg PO DAILY PRN 03/27/24 03/27/24 Atorvastatin [Lipitor] 40 mg PO DAILY 03/27/24 03/27/24 Calcium Carbonate [Calcium] 600 mg PO DAILY 03/27/24 03/27/24 Cholecalciferol (Vitamin D3) 50 mcg PO DAILY 03/27/24 03/27/24 [Vitamin D3 (50 Mcg = 2000 Iu)] Dextroamphetamine Sulfate [Zenzedi] 20 mg PO BID 03/27/24 03/27/24 HYDROcodone/APAP 5-325MG [[place] 1 tab PO BID PRN 03/27/24 03/27/24 5-325] Pregabalin [Lyrica] 300 mg PO DAILY 03/27/24 03/27/24 busPIRone HCL 5 mg PO BID 03/27/24 03/27/24 Allergies Allergy/AdvReac Type Severity Reaction Status Date / Time Penicillins Allergy Unknown Verified 03/27/24 18:01 Childhood Review of Systems ROS Statement: Those systems with pertinent positive or pertinent negative responses have been documented in the HPI. ROS Other: All systems not noted in ROS Statement are negative. Past Medical History Past Medical History: Hypertension Additional Past Medical History / Comment(s): L5 compression fracture. crohns. ADHD History of Any Multi-Drug Resistant Organisms: None Reported Past Surgical History: Tubal Ligation Additional Past Surgical History / Comment(s): REMOVAL OF SHRIMP FROM ESOPHAGUS. COLONOSCOPY. EGD Past Anesthesia/Blood Transfusion Reactions: No Reported Reaction Past Psychological History: ADD/ADHD, Anxiety, Depression Smoking Status: Current every day smoker Past Alcohol Use History: None Reported Past Drug Use History: Marijuana - Past Family History Mother Family Medical History: Cancer Additional Family Medical History / Comment(s): HODGKIN'S LYMPHOMA General Exam - General Exam Comments Initial Comments: Physical Exam GENERAL: Patient is well-developed and well-nourished. Patient is nontoxic and well- hydrated and is in no distress. HENT: Normocephalic, Atraumatic. EYES: PERRL, EOMI PULMONARY: Unlabored respirations. No audible rales rhonchi or wheezing was noted. CARDIOVASCULAR: Regular rate but irregular rhythm Strong peripheral pulses ABDOMEN: Soft and nontender with normal bowel sounds. SKIN: Skin is clear with no lesions or rashes and otherwise unremarkable. : Deferred NEUROLOGIC: Patient is alert and oriented x3. Moving all extremities spontaneously MUSCULOSKELETAL: Normal extremities with adequate strength and full range of motion. No lower extremity swelling or edema. No calf tenderness. PSYCHIATRIC: Normal psychiatric evaluation. Limitations: no limitations Course Vital Signs 03/27/24 03/27/24 03/27/24 16:34 17:00 18:00 Temperature 97.7 F Pulse Rate 106 H 81 89 Respiratory 18 18 20 Rate Blood Pressure 134/67 136/94 109/59 O2 Sat by Pulse 97 97 Oximetry 03/27/24 20:33 Temperature 98.0 F Pulse Rate 70 Respiratory 18 Rate Blood Pressure 125/78 O2 Sat by Pulse 95 Oximetry EKG Findings - EKG Comments: EKG Findings:: EKG interpreted by me, EKG obtained due to palpitations and irregular heartbeat. EKG obtained at 1652 EKG with a rate of 93 rhythm appears to be sinus with frequent ectopy no obvious ST elevations or depressions no evidence of acute ischemia or infarction. Medical Decision Making - Medical Decision Making Was pt. sent in by a medical professional or institution (, SUE, B[facility] [employer]ING B[facility]ER, urgent care, hospital, or shelter...) When possible be specific @ -Yes, sent by primary care physician Dr. Cvoarrubias Did you speak to anyone other than the patient for history (EMS, parent, family, police, friend...)? What history was obtained from this source @ -Primary care physician and at bedside Did you review nursing and triage notes (agree or disagree)? Why? @ -I reviewed and agree with nursing and triage notes Were old charts reviewed (outside hosp., previous admission, EMS record, old EKG, old radiological studies, urgent care reports/EKG's, shelter records)? Report findings @ -No old charts were reviewed Differential Diagnosis (chest pain, altered mental status, abdominal pain women, abdominal pain men, vaginal bleeding, weakness, fever, dyspnea, syncope, headache, dizziness, GI bleed, back pain, seizure, CVA, palpatations, mental health)? @ -Differential Palpitations Ventricular arrhythmias, atrial arrhythmias, myocardial infarction, anemia, thyrotoxicosis, electrolyte imbalance, hypokalemia, pulmonary embolism, pulmonary disease, drugs, alcohol, anxiety, stress.... This is not meant to be an all-inclusive list. EKG interpreted by me (3pts min.). @ -As above X-rays interpreted by me (1pt min.). @ -Chest x-ray with no widened mediastinum no focal consolidations no pneumothorax CT interpreted by me (1pt min.). @ -None done U/S interpreted by me (1pt. min.). @ -None done What testing was considered but not performed or refused? (CT, X-rays, U/S, labs)? Why? @ -None What meds were considered but not given or refused? Why? @ -None Did you discuss the management of the patient with other professionals (professionals i.e. , SUE, [facility] [facility], lab, RT, psych nurse, social service coordinator, orchardist, teacher, vessel traffic officer, casework specialist)? Give summary @ -No Was smoking cessation discussed for >3mins.? @ -No Was critical care preformed (if so, how long)? @ -No Were there social determinants of health that impacted care today? How? (Homelessness, low income, unemployed, alcoholism, drug addiction, transportation, low edu. Level, literacy, decrease access to med. care, usp, rehab)? @ -No Was there de-escalation of care discussed even if they declined (Discuss DNR or withdrawal of care, Hospice)? DNR status @ -No What co-morbidities impacted this encounter? (DM, HTN, Smoking, COPD, CAD, Cancer, CVA, ARF, Chemo, Hep., AIDS, mental health diagnosis, sleep apnea, morbid obesity)? @ -None Was patient admitted / discharged? Hospital course, mention meds given and route, prescriptions, significant lab abnormalities, going to OR and other pertinent info. @ -Discharged The patient was seen and evaluated history was obtained from patient. Patient was seen at her primary care office and was found to be tachycardic EKG social irregularity however upon evaluation at that site there is significant amount of ectopy on EKG. Labs were obtained and are at baseline TSH was within normal limits. Patient has excessive caffeine intake which I advised her to decrease. At this time patient's not in A-fib her heart rate is less than 100 she is asymptomatic she is eager for discharge home. Patient will be discharged home and advised to follow-up with her customer service advisor Dr. Golden for reevaluation. Undiagnosed new problem with uncertain prognosis? @ -No Drug Therapy requiring intensive monitoring for toxicity (Heparin, Nitro, Insulin, Cardizem)? @ -No Were any procedures done? @ -No Diagnosis/symptom? @ -Palpitations Acute, or Chronic, or Acute on Chronic? @ -Acute Uncomplicated (without systemic symptoms) or Complicated (systemic symptoms)? @ -Default Side effects of treatment? @ -No Exacerbation, Progression, or Severe Exacerbation? @ -No Poses a threat to life or bodily function? How? (Chest pain, USA, MA, pneumonia, PE, COPD, DKA, ARF, appy, cholecystitis, CVA, Diverticulitis, Homicidal, Suicidal, threat to staff... and all critical care pts) @ -No - Lab Data Result diagrams: 03/27/24 17:42 03/27/24 17:42 Lab Results 03/27/24 03/27/24 03/27/24 Range/Units 17:42 17:42 17:42 WBC 11.2 H (3.8-10.6) k/uL RBC 5.30 (3.80-5.40) m/uL Hgb 14.8 (11.4-16.0) gm/dL Hct 47.8 H (34.0-46.0) % MCV 90.2 (80.0-100.0) fL MCH 27.8 (25.0-35.0) pg MCHC 30.9 L (31.0-37.0) g/dL RDW 13.1 (11.5-15.5) % Plt Count 240 (150-450) k/uL MPV 9.6 Neutrophils % 72 % Lymphocytes % 18 % Monocytes % 6 % Eosinophils % 2 % Basophils % 1 % Neutrophils # 8.0 H (1.3-7.7) k/uL Lymphocytes # 2.1 (1.0-4.8) k/uL Monocytes # 0.7 (0-1.0) k/uL Eosinophils # 0.2 (0-0.7) k/uL Basophils # 0.1 (0-0.2) k/uL PT 10.1 (10.0-12.5) sec INR 0.9 (<1.2) APTT 32.2 H (22.0-30.0) sec Sodium 139 (137-145) mmol/L Potassium 4.2 (3.5-5.1) mmol/L Chloride 107 (98-107) mmol/L Carbon Dioxide 27 (22-30) mmol/L Anion Gap 5 mmol/L BUN 13 (7-17) mg/dL Creatinine 0.83 (0.52-1.04) mg/dL Est GFR (CKD-EPI)AfAm 80 (>60 ml/min/1.73 sqM) Est GFR (CKD-EPI)NonAf 70 (>60 ml/min/1.73 sqM) Glucose 116 H (74-99) mg/dL Calcium 9.1 (8.4-10.2) mg/dL Magnesium 1.8 (1.6-2.3) mg/dL Total Bilirubin 0.6 (0.2-1.3) mg/dL AST 22 (14-36) U/L ALT 14 (4-34) U/L Alkaline Phosphatase 92 (38-126) U/L Troponin I (0.000-0.034) ng/mL NT-Pro-B Natriuret Pep 1320 pg/mL Total Protein 6.3 (6.3-8.2) g/dL Albumin 3.8 (3.5-5.0) g/dL TSH 1.360 (0.465-4.680) mIU/L 03/27/24 Range/Units 17:42 WBC (3.8-10.6) k/uL RBC (3.80-5.40) m/uL Hgb (11.4-16.0) gm/dL Hct (34.0-46.0) % MCV (80.0-100.0) fL MCH (25.0-35.0) pg MCHC (31.0-37.0) g/dL RDW (11.5-15.5) % Plt Count (150-450) k/uL MPV Neutrophils % % Lymphocytes % % Monocytes % % Eosinophils % % Basophils % % Neutrophils # (1.3-7.7) k/uL Lymphocytes # (1.0-4.8) k/uL Monocytes # (0-1.0) k/uL Eosinophils # (0-0.7) k/uL Basophils # (0-0.2) k/uL PT (10.0-12.5) sec INR (<1.2) APTT (22.0-30.0) sec Sodium (137-145) mmol/L Potassium (3.5-5.1) mmol/L Chloride (98-107) mmol/L Carbon Dioxide (22-30) mmol/L Anion Gap mmol/L BUN (7-17) mg/dL Creatinine (0.52-1.04) mg/dL Est GFR (CKD-EPI)AfAm (>60 ml/min/1.73 sqM) Est GFR (CKD-EPI)NonAf (>60 ml/min/1.73 sqM) Glucose (74-99) mg/dL Calcium (8.4-10.2) mg/dL Magnesium (1.6-2.3) mg/dL Total Bilirubin (0.2-1.3) mg/dL AST (14-36) U/L ALT (4-34) U/L Alkaline Phosphatase (38-126) U/L Troponin I <0.012 (0.000-0.034) ng/mL NT-Pro-B Natriuret Pep pg/mL Total Protein (6.3-8.2) g/dL Albumin (3.5-5.0) g/dL TSH (0.465-4.680) mIU/L Disposition Clinical Impression: Palpitation, Frequent PVCs Disposition: HOME SELF-CARE Condition: Stable Is patient prescribed a controlled substance at d/c from ED?: No Referrals: Nicolle Covarrubias MD [Primary Care Provider] - 1-2 days [facility] [Provider Group] - 1-2 days
[2024-03-27 17:49] LABS: Basophils # (A) 0.1 k/uL (0-0.2); Basophils % (A) 1 %; Eosinophils # (A) 0.2 k/uL (0-0.7); Eosinophils % (A) 2 %; HCT 47.8 % (34.0-46.0); HGB 14.8 gm/dL (11.4-16.0); Lymphocytes # (A) 2.1 k/uL (1.0-4.8); Lymphocytes % (A) 18 %; MCH 27.8 pg (25.0-35.0); MCHC 30.9 g/dL (31.0-37.0); MCV 90.2 fL (80.0-100.0); Mean Platelet Volume 9.6; Monocytes # (A) 0.7 k/uL (0-1.0); Monocytes % (A) 6 %; Neutrophils % (A) 72 %; Platelet Count 240 k/uL (150-450); RDW 13.1 % (11.5-15.5); WBC 11.2 k/uL (3.8-10.6)
[2024-03-27 18:05] LABS: INR 0.9 (<1.2); Partial Thromboplastin Time 32.2 sec (22.0-30.0); Prothrombin Time 10.1 sec (10.0-12.5)
--- NOTE | 2024-03-27 18:14 | XR ---
EXAMINATION TYPE: XR chest 2V DATE OF EXAM: 03/27/2024 COMPARISON: 01/30/2019 INDICATION: Chest pain TECHNIQUE: Frontal and lateral views of the chest are obtained. FINDINGS: The heart size is normal. The pulmonary vasculature is normal. The lungs are clear. There is increased AP diameter and some flattening of the diaphragms suggestive for COPD IMPRESSION: 1. No acute pulmonary process. 2. Clinical correlation for COPD recommended
[2024-03-27 18:39] LABS: ALT 14 U/L (4-34); AST 22 U/L (14-36); African American GFR (CKD) 80 (>60 ml/min/1.73 sqM); Albumin 3.8 g/dL (3.5-5.0); Alkaline Phosphatase 92 U/L (38-126); Anion Gap 5 mmol/L; Blood Urea Nitrogen 13 mg/dL (7-17); Calcium 9.1 mg/dL (8.4-10.2); Carbon Dioxide 27 mmol/L (22-30); Chloride 107 mmol/L (98-107); Glucose 116 mg/dL (74-99); Magnesium 1.8 mg/dL (1.6-2.3); Non-African American GFR(CKD) 70 (>60 ml/min/1.73 sqM); Potassium 4.2 mmol/L (3.5-5.1); Sodium 139 mmol/L (137-145); Total Bilirubin 0.6 mg/dL (0.2-1.3); Total Protein 6.3 g/dL (6.3-8.2)
[2024-03-27 18:45] LABS: NT-Pro-B-Type Natriuretic Pept 1320 pg/mL
[2024-03-27 20:34] VITALS: BP 125/78; PULSE 70; RESP 18; TEMP 98
== END 2024-03-27 20:34 | disposition home or self-care (01) ==
LOC: EC 16:31
DX: I49.3 Ventricular premature depolarization (principal); F17.200 Nicotine dependence, unspecified, uncomplicated; Z88.0 Allergy status to penicillin
CPT/HCPCS: 36415; 71046; 80053; 83735; 83880; 84443; 84484; 85025; 85610; 85730; 93005; 99284

== ENCOUNTER → 2024-10-22 | Outpatient (CLI) | payer MEDICARE ==
--- NOTE | 2024-10-22 16:11 | CTL ---
EXAMINATION TYPE: CT Low Dose Lung DATE OF EXAM ORDERED: 10/22/2024 COMPARISON: 08/07/2023 CLINICAL INDICATION: Female, 74 years old with history of Z12.2 SCREENING LUNG CA Z87.891 FORMER SMOK ER; [facility], f/u lung screening for nicotine dependence of 1ppd x50 years, quit smoking Aug 2024., Lung c ancer screening, History of Smoking/tobacco use. TECHNIQUE: Low dose computed tomography scan was performed through the chest at 1 mm thick sections a nd reconstructed images in multiple planes at 1 mm and [address] DLP: [address] CTDI: 1.95 mGy Automated exposure control for dose reduction was used. CT DIAGNOSTIC QUALITY: Satisfactory FINDINGS: There are moderate emphysematous changes with an upper lobe predominance. There is a stable 7.7 mm nodule in the left lower lobe anteriorly. There are a few scattered stable m icronodules in the right lower lobe. No new or suspicious lung mass or nodule is seen. There is no lung consolidation or abnormal interstitial density. There is no pleural effusion or pneumothorax. The great vessels and heart are normal in size. There is no mediastinal, hilar or axillary adenopathy. There are calcified right hilar lymph nodes. Limited scanning through the upper abdomen reveals a moderate hiatal hernia. There are no focal osseous lesions. IMPRESSION: 1. Lung RADS category 2 benign. Continue routine screening at yearly intervals. 2. No acute cardiopu lmonary disease. 3. Moderate hiatal hernia. 4. Moderate emphysematous changes. [facility], , 10/22/2024 4:09 PM
== END | disposition home or self-care (01) ==
LOC: RADCTMAIN 14:59
PROVIDERS: ATTEND Internal Medicine Critical Care Medicine
DX: Z12.2 Encounter for screening for malignant neoplasm of respiratory organs (principal); J43.9 Emphysema, unspecified; Z87.891 Personal history of nicotine dependence; K44.9 Diaphragmatic hernia without obstruction or gangrene
CPT/HCPCS: 71271